=== PATIENT | female | born 1945 | race Caucasian/White ===

== ENCOUNTER → 2016-09-13 | Outpatient (CLI) | payer MEDICARE | END | disposition home or self-care (01) | LOC: LABPAT 11:33 | PROVIDERS: ATTEND Orthopaedic Surgery | DX: Z01.812 Encounter for preprocedural laboratory examination (principal); M16.11 Unilateral primary osteoarthritis, right hip | CPT/HCPCS: 86850; 86900; 86901; 87070 ==

== ENCOUNTER 2016-09-20 10:07 | Inpatient (IN) | payer MEDICARE ==
[2016-09-14 11:24] VITALS: BMI 27.0
--- NOTE | 2016-09-19 11:52 | HP ---
DATE OF ADMISSION: Jennifer Jeffrey is a 70-year-old patient seen with symptomatic right hip osteoarthritis. After having treatment options discussed, she elected to proceed with right total hip arthroplasty. Consent was obtained. Medical clearance by Dr. Lin. PAST MEDICAL HISTORY: Asthma, hypertension and gastroesophageal reflux disease. Hyperlipidemia. PAST SURGICAL HISTORY: Tonsillectomy, tubal ligation, bladder suspension surgery, cholecystectomy, breast biopsy, cataract surgery. Daily medications: 1. Aspirin. 2. Atorvastatin. 3. Benicar. 4. Omeprazole. 5. Vitamins. ALLERGIES: PENICILLIN, CIPROFLOXACIN, LATEX. SOCIAL HISTORY: Patient denies tobacco use. Physical evaluation of the right hip: There is a very limited range of motion with severe pain, diffuse tenderness about the hip girdle, weakness about the hip girdle. Hip impingement sign is positive. Straight-leg raise is negative. Distal neurovascular exam is intact. Radiographs of the right hip reveal severe osteoarthritic changes. IMPRESSION: Right hip osteoarthritis. PLAN: Direct anterior right total hip arthroplasty.
[~2016-09-20 10:07] MED LIST: ACETAMINOPHEN TAB 500 MG TAB PO ONE; DEXAMETHASONE SOD PHOSPHATE 10 MG/ML 1 ML VIAL IV ONE; HYDROmorphone 1 MG/ML 1 ML SYRINGE IVP PRN; LACTATED RINGERS 1,000 ML IV SCH; MELOXICAM 7.5 MG TAB PO ONE; ONDANSETRON 4 MG/2 ML VIAL IVP ONE; TRANEXAMIC ACID 1,000 MG in SODIUM CHLORIDE 0.9% 100 ML IVPB ONE; ceFAZolin 2 GM in SODIUM CHLORIDE 0.9% 100 ML IVPB ONE
[2016-09-20] MEDS ORDERED: LIDOCAINE 1% 20 ML VIAL (10MG/ML) FOR IV START INTRADERMA ONE (11:25)
[2016-09-20] MEDS ORDERED: ROPIVACAINE 246.25 MG, EPINEPHrine 0.5 MG, KETOROLAC 30 MG, cloNIDine HCL/PF 80 MCG, WA... MISCELLANE ONE ×5 (13:38)
[2016-09-20] MEDS ORDERED: SODIUM CHLORIDE 0.9% 100 ML BAG ONE (14:14)
[2016-09-20] MEDS ORDERED: PROPOFOL 10 MG/ML 20 ML VIAL IV ONE ×2 (14:14)
[2016-09-20] MEDS ORDERED: MIDAZOLAM 2 MG/2 ML VIAL ONE (14:14)
[2016-09-20] MEDS ORDERED: fentaNYL (PF) 50 MCG/ML 2 ML AMP ONE (14:14)
[2016-09-20] MEDS ORDERED: CLINDAMYCIN 1,800 MG in SODIUM CHLORIDE 0.9% IRRIGATIO 3,000 ML IRRIGATION ONE (14:54)
[2016-09-20] MEDS ORDERED: LACTATED RINGERS 1,000 ML IV ONE ×2 (15:30→16:46)
[2016-09-20] MEDS ORDERED: HYDROmorphone 1 MG/ML 1 ML SYRINGE IVP PRN ×3 (16:53)
[2016-09-20] MEDS ORDERED: HYDROcodone/APAP 7.5-325MG 1 EACH TAB PO PRN (16:53)
[2016-09-20] MEDS ORDERED: NALOXONE 0.4 MG/ML 1 ML VIAL IV PRN (16:53)
[2016-09-20] MEDS ORDERED: hydrOXYzine PAMOATE 25 MG CAP PO PRN (16:53)
--- NOTE | 2016-09-20 16:53 | P.OP ---
Date of Procedure: 09/20/16 Preoperative Diagnosis: Right hip osteoarthritis Postoperative Diagnosis: Right hip osteoarthritis Procedure(s) Performed: Direct anterior right total hip arthroplasty Implants: 1. Depuy Corail cementless femoral stem standard no collar size 12 2. Depuy pinnacle acetabular shell 54 mm 3. Depuy pinnacle polyethylene acetabular liner 36 mm ID - 54 mm OD 4. Depuy metallic femoral head 36 mm -2 5. 3-Depuy pinnacle cancellus bone screws Anesthesia: local, spinal Surgeon: Sarthak Sampson Flow Manager #1: Johny Antonio Estimated Blood Loss (ml): 400 Pathology: none sent Condition: stable Disposition: PACU Indications for Procedure: 68-year-old patient seen with symptomatic right hip osteoarthritis. After treatment options were discussed, he elected to proceed with right total hip arthroplasty. Operative Findings: See description of procedure Description of Procedure: The patient was taken to the operative suite. Patient underwent a spinal anesthetic by the department of anesthesia. Patient was then transferred to the Peridot table. Patient was given preoperative IV antibiotics and TXA. Both lower extremities were placed in standard leg spars. The hip was then prepped and draped in the normal sterile orthopedic fashion. A standard anterior incision was made beginning 3 cm lateral and 1 cm distal to the ASIS extending 10 cm. Dissection was then carried down through the subcutaneous soft tissues down to the fascia overlying the tensor fascia rohit. An incision was now made through the fascia. Careful dissection was taken down exposing the tensor fascia rohit muscle. A Cobra retractor was now placed along the medial femoral neck and a second one along the lateral femoral neck. The venous circumflex vessels were now identified, cauterized and clipped. We identified the anterior hip capsule. An incision was made through the hip capsule along the lateral border. Tag sutures were then placed along the anterior capsule and lateral capsule. We then performed a capsulotomy. Retractors were now placed around the femoral neck itself. A Cobra retractor was now placed along the anterior acetabulum. Good exposure was now noted of the femoral head/neck complex. Residual labrum was debrided out. We placed the extremity into 3 turns of fine traction. We were then able to introduce a skid in between the femoral head and acetabulum. A placed a awl into the femoral head. We took 2 turns of traction off the extremity. Rotation was now released. The femoral head was then dislocated without difficulty. Additional releasing was performed of the capsule. The head was then reduced. All traction was released. A femoral neck cut was now made with a sagittal saw. It was completed with an osteotome at the lateral neck area. The femoral head was now removed without difficulty. There was severe osteoarthritis of the femoral head and acetabulum. There was a very large lateral acetabular osteophyte that was removed with a osteotome. The extremity was now rotated to 60 of external rotation. It was locked in position. Residual labrum was now debrided out. Serial reaming was performed of the acetabulum. Once we reached the appropriate size and a trial was position and fit nicely. The appropriate size was now chosen opened and made available. The wound was irrigated with pulse lavage mechanical irrigation. It was introduced into the acetabulum without difficulty. The C-arm/fluoroscopy was now brought into the operative field. We made sure we had a true AP pelvic view. We now under direct C-arm/ fluoroscopy introduced into the acetabular component with appropriate version and inclination. It was well seated and stable. The C-arm was pulled back. An appropriate liner was introduced and clicked into position. It was felt to be stable. At this point retractors were removed. The extremity was now placed into 125 external rotation with no traction. The leg was now dropped to the ground and adducted. Appropriate retractors were now positioned along the proximal femur. We also placed our femoral look into position. Additional capsular releasing was performed to gain access to the proximal femur. We now used a box osteotome. A canal finder was now utilized. Serial broaching was now performed until we reached the appropriate size with good overall rotational stability. Appropriate calcar planing was performed. A trial head/ neck was placed into position. The hip was now reduced. The C-arm/fluoroscopy was brought back into the operative field. A spot film was obtained of the nonoperative hip. A spot film was obtained of the trial components. Overlays were performed, we noted good overall alignment and positioning for determining leg length. The C-arm/fluoroscopy was pulled back. Retractors were repositioned and the hip was dislocated. The leg was again taken down to the ground and adducted. Appropriate retractors were repositioned as well as the femoral hook. All trial components were removed. The femoral implant was opened along with the femoral head. The wound was irrigated with pulse lavage mechanical irrigation. The femoral implant was introduced with good purchase and fixation noted. The femoral head was introduced with good positioning and fixation noted. Retractors were now removed. The hip was now reduced. There appeared be good positioning of the hip. The C-arm was brought into the operative field confirming adequate alignment of the components. Spot films were obtained documenting that. A second gram of TXA was given. Bipolar cautery had been utilized intermittently through the procedure for hemostasis. The wound was irrigated copiously with pulse lavage mechanical irrigation. The superficial soft tissues were infiltrated local analgesic. The fascia was repaired with Vicryl suture. The subcutaneous soft tissues were repaired in layers with Vicryl suture. The skin was approximated with pernio/Dermabond. Sterile dressings were applied. Patient was then awakened, transferred to a bed and taken to recovery in stable condition. Balwinder MORRIS assisted with the procedure.
--- NOTE | 2016-09-20 17:25 | FL ---
Fluoroscopy HISTORY: Pain 41 seconds fluoroscopy time supplied to the referring clinician. 1 intraoperative C-arm images docum ent the procedure. See dictated report from orthopedic surgery.
--- NOTE | 2016-09-20 17:26 | XR ---
Limited right hip HISTORY: Right hip arthroplasty Intraoperative C-arm image documents the procedure
[2016-09-20] MEDS: LACTATED RINGERS 1,000 ML IV SCH (20:21)
[2016-09-20] MEDS: SENNOSIDES-DOCUSATE SODIUM 1 EACH TAB PO SCH (20:21)
[2016-09-20] MEDS: traMADol 50 MG TAB PO SCH ×2 (20:23→23:48)
[2016-09-20] MEDS ORDERED: LACTATED RINGERS 1,000 ML IV SCH (22:00)
[2016-09-20] MEDS ORDERED: SODIUM CHLORIDE 0.9% 500 ML IV ONE (22:07)
[2016-09-20] MEDS: ceFAZolin 2 GM in SODIUM CHLORIDE 0.9% 100 ML IVPB SCH (23:49)
[2016-09-21] MEDS: LACTATED RINGERS 1,000 ML IV SCH ×3 (04:15→23:17)
[2016-09-21 06:42] LABS: Basophils % (A) 0 %; CH 31.7; CHCM 32.4; Eosinophils % (A) 0 %; HCT 22.3 % (34.0-46.0); HDW 2.44; HGB 7.3 gm/dL (11.4-16.0); Luc # (Auto) 0.13; Luc % (Auto) 1; Lymphocytes # (A) 1.6 k/uL (1.0-4.8); Lymphocytes % (A) 12 %; MCH 32.2 pg (25.0-35.0); MCHC 32.8 g/dL (31.0-37.0); MCV 98.2 fL (80.0-100.0); Mean Platelet Volume 8.9; Monocytes # (A) 0.7 k/uL (0-1.0); Monocytes % (A) 5 %; Neutrophils # (A) 10.5 k/uL (1.3-7.7); Neutrophils % (A) 81 %; RBC 2.27 m/uL (3.80-5.40); RDW 13.2 % (11.5-15.5); WBC 12.9 k/uL (3.8-10.6); WBC (Perox) 13.33
[2016-09-21] MEDS: ceFAZolin 2 GM in SODIUM CHLORIDE 0.9% 100 ML IVPB SCH (07:16)
[2016-09-21] MEDS: MELOXICAM 7.5 MG TAB PO SCH (08:31)
[2016-09-21] MEDS: ENOXAPARIN 40 MG/0.4 ML SYRINGE SQ SCH (08:31)
[2016-09-21] MEDS: MULTIVITAMINS, THERA 1 EACH TAB PO SCH (08:32)
[2016-09-21] MEDS: FAMOTIDINE 20 MG TAB PO SCH (08:32)
[2016-09-21] MEDS: traMADol 50 MG TAB PO SCH ×5 (08:36→23:22)
[2016-09-21] MEDS ORDERED: DOCUSATE 100 MG CAP PO SCH (10:45)
[2016-09-21] MEDS ORDERED: OLMESARTAN MEDOXOMIL 10 MG PO SCH (10:45)
--- NOTE | 2016-09-21 11:44 | CONS ---
DATE OF CONSULTATION: 09/21/2016 REASON FOR CONSULTATION: Medical management requested by Dr. Sampson. CONSULTATION: This is a pleasant 70-year-old patient of Dr. Lin. Chronic stable medical conditions include asthma GERD, hyperlipidemia, hypertension, varicose veins. Patient has undergone a right total hip arthroplasty. Postprocedure, patient is sitting up in a chair. Pain is controlled. No nausea vomiting. Patient had some dizziness this morning. Patient normally runs a blood pressure about 100 to 120 systolic. Did tolerate her breakfast. No chest pain. REVIEW OF SYSTEMS: CONSTITUTIONAL: Tired. HEENT: As above. RESPIRATORY: Occasional wheezing. CARDIOVASCULAR: None. GASTROINTESTINAL: Heartburn. GENITOURINARY: None. MUSCULOSKELETAL: Some pain in the joints. DERMATOLOGICAL: None. HEMATOLOGICAL: None. LYMPHATIC: None. PSYCHIATRY: None. NEUROLOGICAL: No focal weakness. Past medical history of asthma, GERD, hyperlipidemia, hypertension, varicose vein, urinary incontinence. PAST SURGICAL HISTORY: Bladder surgery, tonsillectomy, tubal ligation, breast biopsy x2, bronchoscopy, bilateral cataracts. SOCIAL HISTORY: No smoking. No alcohol. Lives with her . Family history of Alzheimer's, rheumatic fever. HOME MEDICATIONS: 1. Tumeric 500 mg p.o. daily. 2. Omeprazole 20 mg p.o. daily. 3. Benicar 10 mg p.o. daily. 4. Multivitamin 1 tablet p.o. daily. 5. Hailey 5000 mg p.o. daily. 6. Colace 100 mg p.o. daily. 7. Vitamin D3 one tablet p.o. daily. 8. Qvar 80 mcg 1 puff inhalation b.i.d. 9. Z-Bec 1 tablet p.o. daily. 10. Lipitor 10 mg p.o. q.h.s. 11. Aspirin 81 mg daily. Allergies to CIPRO, LATEX, PENICILLIN. ON EXAMINATION: VITAL SIGNS: Temperature 97.6, pulse 76, respirations 16, blood pressure 87/47, pulse ox 96% on room air. GENERAL APPEARANCE: Average built, sitting up, comfortable. EYES: Pupils equal. Conjunctivae normal. HEENT: External appearance of nose and ears normal. Oral cavity normal. NECK: JVD not raised. Mass not palpable. RESPIRATORY: Effort normal. LUNGS: Slightly decreased breath sounds. CARDIOVASCULAR: First and second sounds normal. No edema. ABDOMEN: Soft, nontender. Liver and spleen not palpable. LYMPHATIC: No lymph nodes palpable in the neck or axillae. PSYCHIATRY: Alert and oriented x3. Mood and affect normal. NEUROLOGICAL: Pupils equal. Cranial nerves grossly intact. Power and sensation grossly intact. INVESTIGATIONS: White count 12.9, hemoglobin 7.3, platelets ( ). ASSESSMENT: 1. Right total hip arthroplasty. 2. Mild persistent asthma. 3. Gastroesophageal reflux disease. 4. Hyperlipidemia. 5. Essential hypertension, history of. 6. Postoperative hypotension from blood loss, symptomatic. Patient is dizzy. 7. Varicose veins lower extremity on the right leg. PLAN: Patient has got Lovenox for DVT prophylax. Pain control is in place. Getting IV fluids. Will DC patient's Benicar. Other home medications will be resumed. Care was discussed with the patient. Questions were answered. Thank you, Dr. Sampson.
[2016-09-21] MEDS: HYDROcodone/APAP 7.5-325MG 1 EACH TAB PO PRN (12:57)
[2016-09-21] MEDS: PANTOPRAZOLE 40 MG TABLET PO SCH (14:07)
--- NOTE | 2016-09-21 16:37 | P.PN ---
Subjective Principal diagnosis: Status post right total hip arthroplasty Patient is seen today resting in her hospital bed, she appears comfortable. She 's ambulated with therapy are ready. Her urinary cath was discontinued. She denies any headaches, chest pain, shortness of breath. She does feel a little bit lightheaded today especially with ambulation. Objective - Vital Signs Vital signs: Vital Signs Temp 98.3 F 09/21/16 15:32 Pulse 89 09/21/16 15:32 Resp 16 09/21/16 15:32 BP 109/95 09/21/16 15:32 Pulse Ox 95 09/21/16 15:32 Intake & Output 09/20/16 09/21/16 09/21/16 18:59 06:59 18:59 Intake Total 2901 1320 1510 Output Total 550 300 100 Balance 2351 1020 1410 Weight 74.843 kg Intake: IV 2901 1320 1150 Lactated Ringers 1,000 ml 720 1050 @ 80 mls/hr IV .[id number] [facility], [facility] Rx#:[id number] Sodium Chloride 0.9% 500 500 ml @ 999 mls/hr IV .Q31M ONE Rx#:[id number] ceFAZolin 2 gm In Sodium 100 100 Chloride 0.9% 100 ml @ 100 mls/hr IVPB Q8HR [facility] Rx#:[id number] Oral 360 Blood Product 0 Rc As-3 Unit 0 [id number] Output: Urine 150 300 100 Uretheral ([place]) 300 Estimated Blood Loss 400 Other: Voiding Method Indwelling Catheter # Voids 1 - Exam Right lower extremity: Incision is clean, dry and intact. There is minimal ecchymosis on the medial and lateral aspects of the incision. Calf is soft, no tenderness with palpation. Plantar flexion, dorsiflexion, EHL, FHL are intact. Cap refills less than 3 seconds, sensory exam to light touch throughout the extremity is intact. - Labs CBC & Chem 7: 09/21/16 06:28 Labs: Abnormal Lab Results - Last 24 Hours (Table) 09/21/16 09/21/16 Range/Units 06:28 11:41 WBC 12.9 H (3.8-10.6) k/uL RBC 2.27 L (3.80-5.40) m/uL Hgb 7.3 L (11.4-16.0) gm/dL Hct 22.3 L (34.0-46.0) % Plt Count 142 L (150-450) k/uL Neutrophils # 10.5 H (1.3-7.7) k/uL Crossmatch See Detail Assessment and Plan Plan: Assessment: 1. Postop day #1 status post right total hip arthroplasty Plan: 1. Pain control, continue supportive oral medication 2. Patient did receive 1 unit of blood today due to low hemoglobin, this has improved her blood pressure 3. Daily dressing changes/ice the hip region 4. Encourage incentive spirometer 5. GI and DVT prophylaxis, continue Lovenox 6. Medical recommendations 7. Discharge planning: Patient will possibly be discharged home tomorrow Time with Patient: Less than 30
--- NOTE | 2016-09-21 16:37 | P.DS ---
Providers Date of admission: 09/20/16 10:45 Expected date of discharge: 09/23/16 Attending physician: Sarthak Sampson Consults: 09/20/16 16:53 Consult Physician Routine Consulting Provider: Daryn Moura Consult Reason/Comments: Medical management Do you want consulting provider notified?: Yes Primary care physician: Ovidio Lin Hospital Course: Date of admission: 09/20/2016 Date of discharge: 09/23/2016 Admission diagnosis: Status post right total hip arthroplasty Discharge diagnosis: Same Attending physician: Dr. Sampson Surgical procedures: Right total hip arthroplasty Brief history: Patient is a 70-year-old female with a history of progressive primary right hip osteoarthritis. At this point patient has failed conservative treatment measures and has opted to proceed with a elective right total hip arthroplasty. Hospital course: Details of patient's surgery can be found in operative report. Patient tolerated the procedure well and was subsequently transported to orthopedic floor. Patient's orthopeidc and medical care was provided daily. Patient had daily laboratory tests performed for evaluation of overall blood counts. Patient had daily physical therapy to include strengthening range of motion as well as education with walker ambulation. Patient was treated with Lovenox for their postoperative DVT prophylaxis during their inpatient stay. Patient was noted to have a relatively uneventful postoperative course. Patient reported satisfactory pain control with oral pain medications by postoperative day 0. Patient showed satisfactory progress with physical therapy. Patient moved steadily through the program and had no difficulty meeting the goals by postoperative day 3. Given patient's otherwise satisfactory course and having met physical therapy goals, plan is to discharge patient home on postoperative day 3. Discharge condition/disposition: Patient will be discharged home in stable condition. Discharge medications: Instructions are given on resumption of patient's normal daily medications per primary care recommendation, in addition patient will be prescribed Hewitt 7.5 mg/325 mg, tramadol 50 mg, Colace 100 mg, aspirin 325 mg. Discharge instructions: 1. Wound care and infection precautions, keep incision dry and covered while showering, no lotions, creams, moisturizers. No soaking, tubs, pools, hottubs. Do not scrub over the incision. 2. Weight-bear as tolerated with walker / cane until follow-up. 3. Ice and elevate when necessary. Do not exceed 20 minutes per hour with ice pack. 4. Utilize compression sleeve until seen at first follow up appointment. 5. Visiting nursing care. 6. Home physical therapy. 7. Pain meds and anticoagulants per prescription. 8. Pain medication has potential to cause constipation. Increase oral fluid and fiber intake. Contact primary care provider if you have not had a bowel movement within 48 hours after discharge 9. No anti-inflammatory medication until discussed at first post operative visit, this including Motrin, Aleve, Mobic, Diclofenac. 10. Follow up in office at 2 weeks postop with Balwinder Antonio PA-C 11. Follow up with your primary care doctor 7-10 days after discharge. 12. Contact [facility] with any questions, . Procedures: Right total hip arthroplasty Patient Condition at Discharge: Good Plan - Discharge Summary New Discharge Prescriptions: Aspirin 325 mg PO BID #60 tab Docusate [Colace] 100 mg PO DAILY #20 capsule HYDROcodone/APAP 7.5-325MG [Hewitt 7.5] 1 each PO Q6HR PRN #40 tab PRN Reason: Pain traMADol HCl [Ultram] 50 mg PO Q6H PRN #30 tab PRN Reason: Pain Discharge Medication List Acetaminophen Tab [Tylenol Tab] 500 mg PO HS PRN 09/14/16 [History] Atorvastatin [Lipitor] 10 mg PO HS 09/14/16 [History] Beclomethasone Dipropionate [Qvar 80 mcg] 1 puff INHALATION RT-BID 09/14/16 [ History] Calcium Carb/Vitamin D3/Vit K1 [Viactiv Soft Chew Tablet] 1 tab PO DAILY [History] Docusate Sodium [Dok] 100 mg PO DAILY 09/14/16 [History] Hailey 500 mg PO DAILY 09/14/16 [History] Multivitamins, Thera [Multivitamin] 1 tab PO DAILY 09/14/16 [History] Omeprazole 20 mg PO QAM 09/14/16 [History] Turmeric Root Extract [Turmeric] 500 mg PO DAILY 09/14/16 [History] B Complex-Vit C-Vit E-Zinc [Z-Bec] 1 tab PO DAILY 09/20/16 [History] Docusate [Colace] 100 mg PO DAILY #20 capsule 09/22/16 [Rx] HYDROcodone/APAP 7.5-325MG [Hewitt 7.5] 1 each PO Q6HR PRN #40 tab 09/22/16 [Rx] traMADol HCl [Ultram] 50 mg PO Q6H PRN #30 tab 09/22/16 [Rx] Aspirin 325 mg PO BID #60 tab 09/23/16 [Rx] Follow up Appointment(s)/Referral(s): [facility], [NON-STAFF] - 1 Week Johny Antonio PAC [PHYSICIAN ENVIRONMENTAL ECONOMIST] - 10/08/16 3:00 pm Activity/Diet/Wound Care/Special Instructions: hold benicar till f/u with pcp Orthopedic Discharge Instructions: 1. Wound care and infection precautions, keep incision dry and covered while showering, no lotions, creams, moisturizers. No soaking, pools, hot tubs. Do not scrub over incision. 2. Weight-bear as tolerated with walker / cane until follow-up. 3. Ice and elevate when necessary. Do not exceed 20 minutes per hour with ice pack. 4. Utilize compression sleeve until seen at first follow up appointment. 5. Visiting nursing care. 6. Home physical therapy. 7. Pain meds and anticoagulants per prescription. 8. Pain medication has potential to cause constipation. Increase oral fluid and fiber intake. Contact primary care provider if you have not had a bowel movement within 48 hours after discharge. 9. No anti-inflammatory medication until discussed at first post operative visit, this including Motrin, Aleve, Mobic, Diclofenac, Aspirin. 10. Follow up in office at 2 weeks postop with Balwinder Antonio PA-C 11. Follow up with your primary care doctor 7-10 days after discharge. 12. Contact [facility] with any questions, . Discharge Disposition: HOME WITH HOME HEALTH SERVICES
[2016-09-21] MEDS: ATORVASTATIN 10 MG TAB PO SCH (19:39)
[2016-09-21] MEDS: SENNOSIDES-DOCUSATE SODIUM 1 EACH TAB PO SCH (19:39)
[2016-09-21] MEDS: BUDESONIDE 1 MG/2 ML NEBU INHALATION SCH (20:31)
[2016-09-21] MEDS ORDERED: TEMAZEPAM 15 MG CAP PO PRN (22:00)
[2016-09-22] MEDS: ONDANSETRON 4 MG/2 ML VIAL IVP PRN ×2 (01:53→09:57)
[2016-09-22] MEDS: HYDROcodone/APAP 7.5-325MG 1 EACH TAB PO PRN (05:54)
[2016-09-22] MEDS: FAMOTIDINE 20 MG TAB PO SCH (08:24)
[2016-09-22] MEDS: traMADol 50 MG TAB PO SCH ×4 (08:24→23:15)
[2016-09-22] MEDS: PANTOPRAZOLE 40 MG TABLET PO SCH (08:24)
[2016-09-22] MEDS: MELOXICAM 7.5 MG TAB PO SCH (08:24)
[2016-09-22] MEDS: ENOXAPARIN 40 MG/0.4 ML SYRINGE SQ SCH (08:24)
--- NOTE | 2016-09-22 11:14 | P.PN ---
Subjective Principal diagnosis: Status post right total hip arthroplasty Patient is seen today resting in her hospital bed, she appears comfortable. She 's ambulated with therapy are ready. She denies any headaches, chest pain, shortness of breath. Objective - Vital Signs Vital signs: Vital Signs Temp 98.6 F 09/22/16 07:55 Pulse 87 09/22/16 08:00 Resp 16 09/22/16 08:00 BP 105/53 09/22/16 07:55 Pulse Ox 95 09/22/16 07:55 Intake & Output 09/21/16 09/22/16 09/22/16 18:59 06:59 18:59 Intake Total 2000 960 180 Output Total 525 600 900 Balance 1475 360 -720 Weight 74.843 kg Intake: IV 1150 Lactated Ringers 1,000 ml 1050 @ 80 mls/hr IV .[id number] [facility] Rx#:[id number] ceFAZolin 2 gm In Sodium 100 Chloride 0.9% 100 ml @ 100 mls/hr IVPB Q8HR [facility] Rx#:[id number] Oral 540 960 180 Blood Product 310 Rc As-3 Unit 310 [id number] Output: Urine 525 600 900 Uretheral ([place]) 425 600 800 Other: Voiding Method Indwelling Catheter Toilet # Voids 1 - Exam Right lower extremity: Incision is clean, dry and intact. There is minimal ecchymosis on the medial and lateral aspects of the incision. Calf is soft, no tenderness with palpation. Plantar flexion, dorsiflexion, EHL, FHL are intact. Cap refills less than 3 seconds, sensory exam to light touch throughout the extremity is intact. - Labs CBC & Chem 7: 09/21/16 06:28 Labs: Abnormal Lab Results - Last 24 Hours (Table) 09/21/16 Range/Units 11:41 Crossmatch See Detail Assessment and Plan Plan: Assessment: 1. Postop day #2 status post right total hip arthroplasty Plan: 1. Pain control, continue supportive oral medication 2. Check hemoglobin today 3. Daily dressing changes/ice the hip region 4. Encourage incentive spirometer 5. GI and DVT prophylaxis, continue Lovenox 6. Medical recommendations 7. Discharge planning: Patient may be discharged home today Time with Patient: Less than 30
[2016-09-22 11:30] LABS: Basophils % (A) 0 %; CH 31.2; CHCM 32.8; Eosinophils # (A) 0.1 k/uL (0-0.7); Eosinophils % (A) 1 %; HCT 25.8 % (34.0-46.0); HDW 3.03; HGB 8.5 gm/dL (11.4-16.0); Luc # (Auto) 0.09; Luc % (Auto) 1; Lymphocytes # (A) 1.5 k/uL (1.0-4.8); Lymphocytes % (A) 14 %; MCH 31.5 pg (25.0-35.0); MCHC 32.8 g/dL (31.0-37.0); MCV 95.9 fL (80.0-100.0); Mean Platelet Volume 9.2; Monocytes # (A) 0.7 k/uL (0-1.0); Monocytes % (A) 6 %; Neutrophils % (A) 77 %; RBC 2.69 m/uL (3.80-5.40); WBC 10.4 k/uL (3.8-10.6); WBC (Perox) 11.08
[2016-09-22] MEDS: BUDESONIDE 1 MG/2 ML NEBU INHALATION SCH ×2 (11:49→19:20)
--- NOTE | 2016-09-22 12:03 | CDI ---
In responding to this query, please exercise your independent professional judgment. The [facility] Coding Staff and Clinical Documentation Specialists appreciate your assistance in clarifying documentation, maintaining compliance with coding guidelines, accurately documenting patients condition and capturing severity of illness. The fact that a question is asked does not imply that any particular answer is desired or expected. Communication forms are a method of clarifying documentation and are not made part of the Legal Health Record. Thank you in advance for your clarification. Last Revision, May 2015 Fadi Martini [address] [place] [address] Documentation Clarification Form Date: 09/22/2016 11:53:00 AM From: Sidra Cabrera CCS, CCDS Admit Date: 09/20/2016 10:45:00 AM Patient Name: Jennifer Jeffrey Visit Number: [id number] Discharge Date: Dr. Sarthak Sampson: A diagnosis of anemia lacks specificity to accurately reflect your patients severity of condition and clarification is needed. 70 yo female is status post a right total knee arthroplasty per orthopedic surgeon. Postoperatively, the patient is noted to have postoperative hypotension and per the orthopedic progress note, the patient received one unit of PRBCs. Patient history/risk factors: Hypertension, Varicose veins, GERD, Asthma & Hyperlipidemia. Normal BP: 100-120 systolic. Clinical Indicators: POD #1 & #2: patient had symptomatic hypotension with dizziness & BP 83/50, 80/42, 87/45. Hemoglobin: 7.3, 8.5 Hematocrit: 22.3, 25.8 Treatment: One unit PRBCs, IV Lactated ringers, IV fluid bolus, monitoring H&H. In order to capture the severity of condition, please clarify the type of anemia and etiology if known: Acute blood loss anemia Acute on chronic blood loss anemia Chronic blood loss anemia Iron deficiency anemia Hemolytic anemia Drug induced anemia Nutritional anemia Unable to determine Other, please specify Please document in your progress notes and discharge summary in order to capture severity of illness and risk of mortality. Include clinical findings that support your diagnosis. FYI: Press F11 to launch patient chart. Place X here if this finding has no clinical significance, is not applicable or if you are not able to provide any additional documentation. Thank You. KODI
[2016-09-22] MEDS: MULTIVITAMINS, THERA 1 EACH TAB PO SCH (12:59)
[2016-09-22] MEDS: LACTATED RINGERS 1,000 ML IV SCH (18:27)
[2016-09-22] MEDS: ATORVASTATIN 10 MG TAB PO SCH (20:06)
[2016-09-22] MEDS: SENNOSIDES-DOCUSATE SODIUM 1 EACH TAB PO SCH (20:06)
--- NOTE | 2016-09-23 07:03 | PN ---
DATE OF SERVICE: 09/22/2016 PRESENTING COMPLAINT: Right hip arthroplasty. INTERVAL HISTORY: The patient is status post right hip arthroplasty. Doing well, sitting up, comfortable. No chest pain or short of breath. Did well with therapy. Dizziness was better. Review of systems done for constitutional, cardiovascular, GI, pulmonary; relevant findings as above. Current medications are reviewed. On examination, temperature 98.6, pulse 87, respiration 16, blood pressure 105/53, pulse ox 95% on room air. GENERAL APPEARANCE: Sitting up, comfortable. EYES: Pupils equal. Conjunctivae normal. NECK: JVD not raised. Mass not palpable. RESPIRATORY: Effort normal. Lungs are clear. CARDIOVASCULAR: First and second sounds normal. No edema. ABDOMEN: Soft, nontender. Liver and spleen not palpable. PSYCHIATRY: Alert and oriented x3. Mood and affect normal. INVESTIGATIONS: Hemoglobin 8.5. ASSESSMENT: 1. Right total hip arthroplasty. 2. Mild persistent asthma. 3. Gastroesophageal reflux disease. 4. Hyperlipidemia. 5. Essential hypertension, history of. 6. Postoperative hypotension from blood loss, symptomatic, improving. 7. Varicose veins of the right lower extremity. PLAN: Continue current medication and treatment plan. Care was discussed with the patient. Blood pressure was doing better, but hold off antihypertensive.
[2016-09-23] MEDS: LACTATED RINGERS 1,000 ML IV SCH (07:20)
[2016-09-23 07:45] VITALS: BP 117/51; PULSE 97; RESP 18; TEMP 97.1
[2016-09-23] MEDS: ENOXAPARIN 40 MG/0.4 ML SYRINGE SQ SCH (07:53)
[2016-09-23] MEDS: PANTOPRAZOLE 40 MG TABLET PO SCH (07:54)
[2016-09-23] MEDS: MELOXICAM 7.5 MG TAB PO SCH (07:54)
[2016-09-23] MEDS: traMADol 50 MG TAB PO SCH ×2 (07:54→12:04)
[2016-09-23] MEDS: FAMOTIDINE 20 MG TAB PO SCH (07:54)
[2016-09-23] MEDS: BUDESONIDE 1 MG/2 ML NEBU INHALATION SCH (08:43)
--- NOTE | 2016-09-23 11:45 | CDI ---
In responding to this query, please exercise your independent professional judgment. The [facility] Coding Staff and Clinical Documentation Specialists appreciate your assistance in clarifying documentation, maintaining compliance with coding guidelines, accurately documenting patients condition and capturing severity of illness. The fact that a question is asked does not imply that any particular answer is desired or expected. Communication forms are a method of clarifying documentation and are not made part of the Legal Health Record. Thank you in advance for your clarification. Last Revision, May 2015 Fadi Martini [address] [place] [address] Documentation Clarification Form Date: 09/23/2016 11:45:00 AM From: Sidra Cabrera CCS, CCDS Admit Date: 09/20/2016 10:45:00 AM Patient Name: Jennifer Jeffrey Visit Number: [id number] Discharge Date: Dr. Daryn Moura: A diagnosis of anemia lacks specificity to accurately reflect your patients severity of condition and clarification is needed. 70 yo female is status post a right total knee arthroplasty per orthopedic surgeon. Postoperatively, the patient is noted to have postoperative hypotension and per the orthopedic progress note, the patient received one unit of PRBCs. Patient history/risk factors: Hypertension, Varicose veins, GERD, Asthma & Hyperlipidemia. Normal BP: 100-120 systolic. Clinical Indicators: POD #1 & #2: patient had symptomatic hypotension with dizziness & BP 83/50, 80/42, 87/45. Hemoglobin: 7.3, 8.5 Hematocrit: 22.3, 25.8 Treatment: One unit PRBCs, IV Lactated ringers, IV fluid bolus, monitoring H&H. In order to capture the severity of condition, please clarify the type of anemia and etiology if known: Acute blood loss anemia Acute on chronic blood loss anemia Chronic blood loss anemia Iron deficiency anemia Hemolytic anemia Drug induced anemia Nutritional anemia Unable to determine Other, please specify Please document in your progress notes and discharge summary in order to capture severity of illness and risk of mortality. Include clinical findings that support your diagnosis. FYI: Press F11 to launch patient chart. ___+__ Place X here if this finding has no clinical significance, is not applicable or if you are not able to provide any additional documentation. Thank You. KODI
--- NOTE | 2016-09-23 11:48 | P.PN ---
Subjective Principal diagnosis: Status post right total hip arthroplasty Patient is seen today resting in her hospital bed, she appears comfortable. She 's ambulated with therapy are ready. She denies any headaches, chest pain, shortness of breath. Objective - Vital Signs Vital signs: Vital Signs Temp 97.1 F L 09/23/16 07:44 Pulse 97 09/23/16 08:00 Resp 18 09/23/16 08:00 BP 117/51 09/23/16 07:44 Pulse Ox 96 09/23/16 07:44 Intake & Output 09/22/16 09/23/16 09/23/16 18:59 06:59 18:59 Intake Total 770 240 Output Total 1000 Balance -230 240 Weight 74.843 kg Intake: Oral 770 240 Output: Urine 1000 Uretheral ([place]) 800 Other: Voiding Method Toilet Toilet Toilet # Voids 1 1 - Exam Right lower extremity: Incision is clean, dry and intact. There is minimal ecchymosis on the medial and lateral aspects of the incision. Calf is soft, no tenderness with palpation. Plantar flexion, dorsiflexion, EHL, FHL are intact. Cap refills less than 3 seconds, sensory exam to light touch throughout the extremity is intact. - Labs CBC & Chem 7: 09/22/16 11:10 Assessment and Plan Plan: Assessment: 1. Postop day #3 status post right total hip arthroplasty Plan: 1. Pain control, continue supportive oral medication 2. Check hemoglobin today 3. Daily dressing changes/ice the hip region 4. Encourage incentive spirometer 5. GI and DVT prophylaxis, continue Lovenox 6. Medical recommendations 7. Discharge planning: Patient will be discharged home today Time with Patient: Less than 30
[2016-09-23] MEDS: MULTIVITAMINS, THERA 1 EACH TAB PO SCH (12:04)
[2016-09-23 13:18] LABS: Basophils # (A) 0.1 k/uL (0-0.2); Basophils % (A) 1 %; CH 31.5; CHCM 33.2; Eosinophils # (A) 0.2 k/uL (0-0.7); Eosinophils % (A) 2 %; HCT 24.4 % (34.0-46.0); HDW 2.77; HGB 8.2 gm/dL (11.4-16.0); Luc % (Auto) 1; Lymphocytes # (A) 1.7 k/uL (1.0-4.8); Lymphocytes % (A) 18 %; MCH 31.9 pg (25.0-35.0); MCHC 33.4 g/dL (31.0-37.0); MCV 95.5 fL (80.0-100.0); Mean Platelet Volume 10.5; Monocytes # (A) 0.4 k/uL (0-1.0); Monocytes % (A) 5 %; Neutrophils # (A) 6.8 k/uL (1.3-7.7); Neutrophils % (A) 74 %; RBC 2.55 m/uL (3.80-5.40); RDW 14.8 % (11.5-15.5); WBC 9.3 k/uL (3.8-10.6); WBC (Perox) 9.86
--- NOTE | 2016-09-24 08:02 | PN ---
DATE OF SERVICE: 09/23/2016 PRESENTING COMPLAINT: Right hip arthroplasty. INTERVAL HISTORY: This patient seen by me earlier today is status post right hip surgery, doing well. No chest pain, short of breath. Tolerating a diet. Did work with therapy. Review of systems done for constitutional, cardiovascular, GI, pulmonary; relevant findings as above. Current medications are reviewed. On examination, temperature 97.1, pulse 97, respirations 18, blood pressure 117/51, pulse ox 96% on room air. GENERAL APPEARANCE: Sitting up, comfortable. EYES: Pupils equal, conjunctivae normal. NECK: JVD not raised. Mass not palpable. RESPIRATORY: Effort normal. Lungs are clear. CARDIOVASCULAR: First and second sounds normal. No edema. ABDOMEN: Soft, nontender. Liver and spleen not palpable. PSYCHIATRY: Alert and oriented x3. Mood and affect normal. INVESTIGATIONS: Hemoglobin 8.2. ASSESSMENT: 1. Right total hip arthroplasty. 2. Mild persistent asthma. 3. Gastroesophageal reflux disease. 4. Hyperlipidemia. 5. Essential hypertension, history of. 6. Postop hypotension from blood loss. 7. Varicose veins in the right lower extremity. 8. Chronic anemia, normocytic, cause unknown. PLAN: Patient is doing well. Continue current medication and treatment plan. Antihypertensive to be held and follow with a family doctor.
== END 2016-09-23 14:04 | disposition home health service (06) | DRG 470 ==
LOC: 2ORMAIN 10:45 → 3SUR 17:05
PROVIDERS: ADMIT Orthopaedic Surgery; ATTEND Orthopaedic Surgery
PROC: 0SR902A Replacement of Right Hip Joint with Metal on Polyethylene Synthetic Substitute, Uncemented, Open Approach (ICD-10-PCS; principal; 2016-09-20 13:00)
PROC: 30233N1 Transfusion of Nonautologous Red Blood Cells into Peripheral Vein, Percutaneous Approach (ICD-10-PCS; 2016-09-21)
DX: M16.11 Unilateral primary osteoarthritis, right hip (principal); I10 Essential (primary) hypertension; M25.751 Osteophyte, right hip; D64.9 Anemia, unspecified; M25.851 Other specified joint disorders, right hip; I95.81 Postprocedural hypotension; J45.30 Mild persistent asthma, uncomplicated; K21.9 Gastro-esophageal reflux disease without esophagitis; E78.5 Hyperlipidemia, unspecified; I83.91 Asymptomatic varicose veins of right lower extremity; R32 Unspecified urinary incontinence; R53.1 Weakness; Z90.49 Acquired absence of other specified parts of digestive tract; Z98.51 Tubal ligation status; Z88.1 Allergy status to other antibiotic agents; Z79.82 Long term (current) use of aspirin; Z82.0 Family history of epilepsy and other diseases of the nervous system; Z98.49 Cataract extraction status, unspecified eye; Z79.899 Other long term (current) drug therapy; Z88.0 Allergy status to penicillin; Z91.040 Latex allergy status
CPT/HCPCS: 73501; 85025; 86850; 86900; 86901; 86920; 88300; 94640

== ENCOUNTER → 2017-03-08 | Outpatient (CLI) | payer MEDICARE ==
--- NOTE | 2017-03-10 08:11 | MM ---
Reason for exam: screening (asymptomatic). Last mammogram was performed 1 year ago. History: Patient is postmenopausal. Benign left US cyst aspiration of the left breast, May 29, 2007. Benign US right core biopsy of the right breast, May 29, 2007. Core biopsy of the right breast, June 20, 2006. Took estrogen for 4 years 6 months beginning at age 56. Physical Findings: A clinical breast exam by your physician is recommended on an annual basis and results should be correlated with mammographic findings. MG 3D Screening Mammo W/Cad Bilateral CC and MLO view(s) were taken. Prior study comparison: March 05, 2016, bilateral MG 3d screening mammo w/cad. March 06, 2015, right breast MG work up mamm w CAD RT. February 26, 2015, bilateral MG screening mammo w CAD. February 15, 2014, bilateral MG screening mammo w CAD. The breast tissue is heterogeneously dense. This may lower the sensitivity of mammography. Previous mammotome biopsy in the right breast. No significant changes when compared with prior studies. ASSESSMENT: Negative, BI-RAD 1 RECOMMENDATION: Routine screening mammogram of both breasts in 1 year.
== END | disposition home or self-care (01) ==
LOC: RADMAMWWP 14:48
PROVIDERS: ATTEND Family Medicine
DX: Z12.31 Encounter for screening mammogram for malignant neoplasm of breast (principal)
CPT/HCPCS: 77063; G0202

== ENCOUNTER → 2017-06-03 | Outpatient (CLI) | payer MEDICARE ==
--- NOTE | 2017-06-03 16:47 | US ---
EXAMINATION TYPE: US duplex aorta DATE OF EXAM: 06/03/2017 COMPARISON: US CLINICAL HISTORY: Z13.9 Screening for unspecified condition. Screening, pt has no complaints at this time EXAM MEASUREMENTS: Abdominal Aorta: Proximal: 2.1 x 2.1 cm Mid: 1.5 x 1.4 cm Distal: 1.5 x 1.4 cm Bifurcation: PIYUSH: 1.3 x 1.0 cm GEENA: 1.0 x 1.0 cm Aorta appeared wnl IMPRESSION: 1. Screening abdominal ultrasound for abdominal aortic aneurysm is negative.
== END | disposition home or self-care (01) ==
LOC: RADUSWWP 07:50
PROVIDERS: ATTEND Family Medicine
DX: Z13.9 Encounter for screening, unspecified (principal)
CPT/HCPCS: 93979

== ENCOUNTER → 2017-06-08 | Outpatient (CLI) | payer MEDICARE ==
--- NOTE | 2017-06-08 15:14 | BD ---
EXAMINATION TYPE: MG DEXA axial skeleton. DATE OF EXAM: 06/08/2017 COMPARISON: DEXA bone scan January 10, 2012 CLINICAL HISTORY: Height: 65.5 Weight: 163 FRAX RISK QUESTIONS: Alcohol (3 or more units per day): no Family History (Parent hip fracture): no Glucocorticoids (More than 3mos): yes (Ex: prednisone, prednisolone, methylprednisolone, dexamethasone, and hydrocortisone). History of Fracture in Adulthood: toe Secondary Osteoporosis: 1. Type 1 Diabetes: no 2. Hyperthyroidism: no 3. Menopause before 45: no 4. Malnutrition: no 5. Chronic liver disease: no Rheumatoid Arthritis: no Current Tobacco Use: no RISK FACTORS HISTORY OF: Surgery to Hip(right): yes When: early 2016 Family History of Osteoporosis: yes Active: yes Diet low in dairy products/other sources of calcium: several servings a week Postmenopausal woman: yes Take estrogen and/or progesterone medications: not now How long: about 4 1/2 years Lost more than 2 inches in height since high school: no Frequent falls: no Poor Health: no Hyperparathyroidism: no, Adrenal Insufficiency: no MEDICATIONS: Prednisone or other steroids: yes How Long: about 3 years Thyroid Medications: no Osteoporosis Medications: no Additional Medications: calcium with Vitamin D , Atorvastatin(Lipitor), Q-Keshawn Inhalation Aerosol, Young icar for blood pressure Additional History: articular cartilage disorder site unspecified EXAM MEASUREMENTS: Bone mineral densitometry was performed using the [employer]. Bone mineral density as measured about the Lumbar spine is: ----- L1-L4(G/cm2): 1.258 T Score Values are as follows: ----- L2: 0.6 ----- L3: 1.4 ----- L4: 0.1 ----- L1-L4: 0.7 Bone mineral density has: Decreased -4.4% since study of: 01/10/2012 Bone mineral density about the L hip (g/cm2): 0.736 T Score values are as follows: -----L Neck: -2.2 -----L Total: -1.6 Bone mineral density has: decreased -12.8% since study of: 01/10/2012 IMPRESSION: Osteopenia (T Score between -2.5 and -1 as noted by T score values in the left hip. Bone density is d ecreased or diminished from prior. There remains slightly increased risk of fracture and the patient may be considered for treatment. Re-Screen 2-5 years. NOTE: T-SCORE=SD OF THE YOUNG ADULT MEAN.
== END | disposition home or self-care (01) ==
LOC: RADBDWWP 10:22
PROVIDERS: ATTEND Family Medicine
DX: M85.852 Other specified disorders of bone density and structure, left thigh (principal)
CPT/HCPCS: 77080

== ENCOUNTER → 2018-04-06 | Outpatient (CLI) | payer MEDICARE ==
--- NOTE | 2018-04-06 14:54 | MM ---
Reason for exam: screening (asymptomatic). Last mammogram was performed 1 year and 1 month ago. History: Patient is postmenopausal. Benign left US cyst aspiration of the left breast, May 29, 2007. Benign US right core biopsy of the right breast, May 29, 2007. Core biopsy of the right breast, June 20, 2006. Took estrogen for 4 years 6 months beginning at age 56. Physical Findings: A clinical breast exam by your physician is recommended on an annual basis and results should be correlated with mammographic findings. MG 3D Screening Mammo W/Cad Bilateral CC and MLO view(s) were taken. Prior study comparison: March 08, 2017, bilateral MG 3d screening mammo w/cad. March 05, 2016, bilateral MG 3d screening mammo w/cad. The breast tissue is heterogeneously dense. This may lower the sensitivity of mammography. There are benign appearing round calcifications bilaterally. There is no discrete abnormality. ASSESSMENT: Benign, BI-RAD 2 RECOMMENDATION: Routine screening mammogram of both breasts in 1 year.
== END | disposition home or self-care (01) ==
LOC: RADMAMWWP 10:39
PROVIDERS: ATTEND Family Medicine
DX: Z12.31 Encounter for screening mammogram for malignant neoplasm of breast (principal)
CPT/HCPCS: 77063; 77067

== ENCOUNTER → 2019-04-02 | Outpatient (CLI) | payer MEDICARE | END | disposition home or self-care (01) | LOC: LABPAT 10:14 | PROVIDERS: ATTEND Orthopaedic Surgery | DX: Z01.812 Encounter for preprocedural laboratory examination (principal); M16.12 Unilateral primary osteoarthritis, left hip | CPT/HCPCS: 87070 ==

== ENCOUNTER 2019-04-09 08:52 | Inpatient (IN) | payer MEDICARE ==
--- NOTE | 2019-04-08 13:56 | HP ---
HISTORY AND PHYSICAL Jennifer Jeffrey is a 73-year-old patient seen with symptomatic left hip osteoarthritis. After having treatment options discussed with her, she elected to proceed with direct anterior left total hip arthroplasty. Consent regarding the procedure was obtained. Medical clearance was provided by Dr. Lin. PAST MEDICAL HISTORY: Hypertension, hyperlipidemia, asthma. PAST SURGICAL HISTORY: Right total hip arthroplasty, cataract surgery, colonoscopy, breast biopsy, cholecystectomy, bladder suspension surgery, tonsillectomy. DAILY MEDICATIONS: Aspirin, atorvastatin, Benicar, isosorbide. ALLERGIES: PENICILLIN, CIPROFLOXACIN, LATEX. SOCIAL HISTORY: She denies current tobacco use. PHYSICAL EXAMINATION: Evaluation of the left hip, there is limited range of motion with pain. Positive hip impingement sign. Straight leg raise is negative. Her distal neurovascular exam is intact. RADIOGRAPHS: Radiographs of the left hip reveal severe osteoarthritic changes. IMPRESSION: 1. Left hip osteoarthritis. 2. Hypertension. 3. Hyperlipidemia. PLAN: Direct anterior left total hip arthroplasty. MMODL / IJN: [id number] /
[~2019-04-09 08:52] MED LIST changes: -ACETAMINOPHEN TAB 500 MG TAB PO ONE; -DEXAMETHASONE SOD PHOSPHATE 10 MG/ML 1 ML VIAL IV ONE; +HYDROmorphone 0.5 MG/0.5 ML SYRINGE IVP PRN; -HYDROmorphone 1 MG/ML 1 ML SYRINGE IVP PRN; -LACTATED RINGERS 1,000 ML IV SCH; +LIDOCAINE 1% 20 ML VIAL (10MG/ML) FOR IV START INTRADERMA PRN; -MELOXICAM 7.5 MG TAB PO ONE; -ONDANSETRON 4 MG/2 ML VIAL IVP ONE; +ROPIVACAINE 246.25 MG, EPINEPHrine 0.5 MG, KETOROLAC 30 MG, cloNIDine HCL/PF 80 MCG, WA... MISCELLANE ONE; -ceFAZolin 2 GM in SODIUM CHLORIDE 0.9% 100 ML IVPB ONE
[2019-04-09] MEDS: MELOXICAM 7.5 MG TAB PO ONE ×2 (09:23→13:10)
[2019-04-09] MEDS: ACETAMINOPHEN TAB 500 MG TAB PO ONE ×2 (09:23→13:10)
[2019-04-09] MEDS: LACTATED RINGERS 1,000 ML IV SCH ×3 (09:38→13:12)
[2019-04-09] MEDS: DEXAMETHASONE SOD PHOSPHATE 10 MG/ML 1 ML VIAL IV ONE ×2 (09:44→13:09)
[2019-04-09] MEDS: ONDANSETRON 4 MG/2 ML VIAL IVP ONE ×2 (09:44→13:10)
[2019-04-09] MEDS ORDERED: ePHEDrine SULFATE/0.9% NACL/PF 50 MG/5 ML SYRINGE IV ONE (10:19)
[2019-04-09] MEDS ORDERED: MIDAZOLAM 2 MG/2 ML VIAL ONE (10:19)
[2019-04-09] MEDS ORDERED: TRANEXAMIC ACID 1,000 MG/10 ML VIAL ONE (10:19)
[2019-04-09] MEDS ORDERED: SODIUM CHLORIDE 0.9% 100 ML BAG ONE (10:19)
[2019-04-09] MEDS ORDERED: PHENYLEPHRINE-0.9% NACL SYG 1 MG/10 ML SYRINGE ONE (10:19)
[2019-04-09] MEDS ORDERED: PROPOFOL 10 MG/ML 20 ML VIAL IV ONE (10:19)
[2019-04-09] MEDS ORDERED: ceFAZolin 3,000 MG in SODIUM CHLORIDE 0.9% IRRIGATIO 3,000 ML IRRIGATION ONE (10:53)
[2019-04-09] MEDS ORDERED: LACTATED RINGERS 1,000 ML IV ONE (12:00)
[2019-04-09] MEDS ORDERED: HYDROcodone/APAP 7.5-325MG 1 EACH TAB PO PRN (12:22)
[2019-04-09] MEDS ORDERED: ONDANSETRON 4 MG/2 ML VIAL IVP PRN (12:22)
[2019-04-09] MEDS ORDERED: HYDROmorphone 0.5 MG/0.5 ML SYRINGE IVP PRN ×3 (12:22)
[2019-04-09] MEDS ORDERED: NALOXONE 0.4 MG/ML 1 ML VIAL IV PRN (12:22)
--- NOTE | 2019-04-09 12:22 | P.OP ---
Date of Procedure: 04/09/19 Preoperative Diagnosis: Left hip osteoarthritis Postoperative Diagnosis: Left hip osteoarthritis Procedure(s) Performed: Direct anterior left total hip arthroplasty Implants: 1. Depuy Corail KA standard with collar press fit femoral stem 2. Depuy pinnacle 52 mm press-fit acetabular shell 3. Depuy pinnacle neutral polyethylene acetabular liner 52 mm OD 36 mm ID 4. Biolox delta ceramic femoral head 36 mm +1.5 Anesthesia: local, spinal Surgeon: Sarthak Sampson Estimated Blood Loss (ml): 150 Pathology: other (Femoral head) Condition: stable Disposition: PACU Indications for Procedure: 73-year-old patient seen with symptomatic left hip osteoarthritis. After having treatment options discussed, she elected to proceed with total hip arthroplasty. Operative Findings: see description of procedure Description of Procedure: The patient was taken to the operative suite. Patient underwent a spinal anesthetic by the department of anesthesia. Patient was then transferred to the [place] table. Patient was given preoperative IV antibiotics and TXA. Both lower extremities were placed in standard leg spars. The hip was then prepped and draped in the normal sterile orthopedic fashion. A standard anterior incision was made beginning 3 cm lateral and 1 cm distal to the ASIS extending 10 cm. Dissection was then carried down through the subcutaneous soft tissues down to the fascia overlying the tensor fascia rohit. An incision was now made through the fascia. Careful dissection was taken down exposing the tensor fascia rohit muscle. A Cobra retractor was now placed along the medial femoral neck and a second one along the lateral femoral neck. The venous circumflex vessels were now identified, cauterized and clipped. We identified the anterior hip capsule. An incision was made through the hip capsule along the lateral border. I performed a partial anterior capsulectomy. Retractors were now placed around the femoral neck itself. A femoral neck cut was now made with a sagittal saw. It was completed with an osteotome at the lateral neck area. The femoral head was now removed without difficulty. The extremity was now rotated to 45 of external rotation. It was locked in position. Residual labrum was now debrided out. Serial reaming was performed of the acetabulum while my family readiness support assistant assisted holding an anterior retractor for exposure. Once we reached the appropriate size and a trial was position and fit nicely. The appropriate size was now chosen opened and made available. It was introduced into the acetabulum without difficulty. The C-arm/fluoroscopy was now brought into the operative field. We made sure we had a true AP pelvic view. We now under direct C-arm/fluoroscopy introduced into the acetabular component with appropriate version and inclina tion. I held the cup in appropriate position well Balwinder MORRIS used a mallet to seat the acetabular component. I noted the component now to be well seated and stable. Acetabular cup introduce her was removed. The C-arm was pulled back. An appropriate liner was introduced and clicked into position. It was felt to be stable. At this point retractors were removed. The extremity was now placed into 120 external rotation with no traction. The leg was now dropped to the ground and adducted. Appropriate retractors were now positioned along the proximal femur. We also placed our femoral look into position. Additional capsular releasing was performed to gain access to the proximal femur. We now used a box osteotome. A canal finder was now utilized. Serial broaching was now performed with the assistance of my family readiness support assistant tapping the broaches down with a mallet while held the broach in appropriate rotation and position. This was done until we reached the appropriate size with good overall rotational stability. Appropriate calcar planing was performed. A trial head/neck was placed into position. The hip was now reduced. The C- arm/fluoroscopy was brought back into the operative field. A spot film was obtained of the nonoperative hip. A spot film was obtained of the trial components. Overlays were performed, we noted good overall alignment and positioning for determining leg length. The C-arm/fluoroscopy was pulled back. Retractors were repositioned and the hip was dislocated. The leg was again taken down to the ground and adducted. Appropriate retractors were repositioned as well as the femoral hook. All trial components were removed. The femoral implant was opened along with the femoral head. The femoral implant was introduced on the appropriate handle into our pre-broached area. I held the component position well my family readiness support assistant used a mallet to seat the femoral component. The femoral component was now noted to be well seated and stable.. The femoral head was introduced with good positioning and fixation noted. Retractors were now removed. The hip was now reduced. There appeared be good positioning of the hip confirmed on intraoperative fluoroscopy. Spot films were obtained to document this. A second gram of TXA was given. The deep and superficial soft tissues were infiltrated with local analgesic. Bipolar cautery had been utilized intermittently through the procedure for hemostasis. The wound was irrigated copiously with pulse lavage mechanical irrigation. The fascia was repaired with Vicryl suture. The subcutaneous soft tissues were repaired in layers with Vicryl suture. The skin was approximated with pernio/Dermabond. Sterile dressings were applied. Patient was then awakened, transferred to a bed and taken to recovery in stable condition.
[2019-04-09 13:58] VITALS: BMI 26.9
[2019-04-09] MEDS ORDERED: ACETAMINOPHEN TAB 500 MG TAB PO PRN (14:48)
[2019-04-09] MEDS ORDERED: TRIAMCINOLONE 0.1% CREAM 80 GM TUBE TOPICAL SCH (15:00)
--- NOTE | 2019-04-09 15:08 | FL ---
EXAMINATION TYPE: FL guidance operating room, XR Hip Limited LT DATE OF EXAM: 04/09/2019 HISTORY: 73-year-old female left hip replacement in the OR. FINDINGS: Single intraoperative image shows placement of left total hip arthroplasty. FLUOROSCOPY Fluoroscopy time of 20 seconds was used during anterior left hip replacement. 1 image/s document/s t he procedure. IMPRESSION: Fluoroscopy as above.
--- NOTE | 2019-04-09 20:08 | PN ---
PROGRESS NOTE DATE OF SERVICE: 04/09/2019 REASON FOR CONSULTATION: Advice regarding asthma and other multiple medical issues, requested by Dr. Sampson. HISTORY OF PRESENT ILLNESS: This 73-year-old woman with a past medical history of asthma, GERD, hypertension, hyperlipidemia, history of DJD, history of MRSA, being followed by Dr. Lin in the outpatient setting, underwent left hip arthroplasty via direct anterior approach. Patient is being closely monitored. There is no history of chest pain, no history of palpitations, headache, loss of consciousness, nausea, vomiting, diarrhea, fever, rigor or chills at this time. PAST MEDICAL HISTORY: 1. Asthma. 2. GERD. 3. Hypertension. 4. Hyperlipidemia. 5. History of DJD. HOME MEDICATIONS: 1. Turmeric extract. 2. Kenalog 1 application q.48 hours. 3. Soolantra topically. 4. Benicar 10 mg p.o. daily. 5. Multivitamins 1 p.o. daily. 6. Magnesium oxide 250 mg p.o. daily. 7. Isosorbide ER 30 mg p.o. daily. 8. Hailey 500 mg p.o. daily. 9. Calcium with vitamin D3 one p.o. daily. 10.Biotin 10,000 mcg p.o. daily. 11.Qvar 80 mcg 1 puff b.i.d. 12.Z-Bec 1 tablet p.o. daily. 13.Lipitor 10 mg at bedtime. 14.Tylenol p.r.n. ALLERGIES: 1. CIPRO. 2. LATEX. 3. PENICILLIN. FAMILY HISTORY: History of heart problems and dementia. SOCIAL HISTORY: No history of smoking. No history of alcohol intake. REVIEW OF SYSTEMS: ENT: Diminished hearing. Diminished vision. CARDIOVASCULAR SYSTEM: No angina, palpitations. RESPIRATORY SYSTEM: As mentioned earlier. GI: No nausea, vomiting. : No dysuria or retention. NERVOUS SYSTEM: No numbness, weakness. ALLERGY/IMMUNOLOGY: No asthma, hayfever. MUSCULOSKELETAL: As mentioned earlier. HEMATOLOGY/ONCOLOGY: No history of anemia. ENDOCRINE: No history of diabetes, hypothyroidism. CONSTITUTIONAL: As mentioned earlier. DERMATOLOGY: Negative. RHEUMATOLOGY: Negative. PSYCHIATRY: As mentioned earlier. PHYSICAL EXAMINATION: Patient alert and oriented x3. Pulse is 67, blood pressure 103/59, respirations 16, temperature 97.9, pulse ox 97% on room air. HEENT: Conjunctivae normal. Oral mucosa moist. NECK: No jugular venous distention. No carotid bruit. No lymph node enlargement. CARDIOVASCULAR SYSTEM: S1, S2 muffled. No S3. No S4. RESPIRATORY SYSTEM: Breath sounds diminished at the bases. No rhonchi. No crackles. ABDOMEN: Soft, non-tender. LEGS: Status post surgery. NERVOUS SYSTEM: Higher functions as mentioned earlier. Moves all 4 limbs. No focal motor or sensory deficit. LYMPHATICS: No lymph node palpable in neck, axillae or groin. SKIN: No ulcer, rash, bleeding. JOINTS: As mentioned earlier. LABS: Hemoglobin 9.2 preoperatively. The chemistry is normal. ASSESSMENT: 1. Status post left hip arthroplasty. 2. History of anemia. 3. Asthma. 4. Gastroesophageal reflux disease. 5. Hypertension. 6. Hyperlipidemia. 7. History of degenerative joint disease. 8. History of varicose veins. 9. History of rosacea. 10.History of methicillin-resistant Staphylococcus aeruginosa. RECOMMENDATIONS AND DISCUSSION: In this 73-year-old woman who presented with multiple complex medical issues, we will monitor the patient closely, continue the current management, continue symptomatic treatment. I recommend repeat labs in the morning. DVT prophylaxis. Incentive spirometry. Resume the home medications. We will follow the patient closely with you. The patient may be asked to follow with Dr. Lin closely after discharge. Thank you, Dr. Sampson, for letting us participate in the care of this patient. MMODL / IJN: [id number] /
[2019-04-09] MEDS: HYDROcodone/APAP 7.5-325MG 1 EACH TAB PO PRN (20:26)
[2019-04-09] MEDS ORDERED: ATORVASTATIN 10 MG TAB PO SCH (21:00)
[2019-04-09] MEDS ORDERED: SENNOSIDES-DOCUSATE SODIUM 1 EACH TAB PO SCH (21:00)
[2019-04-10] MEDS: LACTATED RINGERS 1,000 ML IV SCH (02:33)
[2019-04-10 07:00] LABS: Basophils % (A) 0 %; Eosinophils % (A) 0 %; HCT 30.9 % (34.0-46.0); HGB 10.7 gm/dL (11.4-16.0); Lymphocytes % (A) 7 %; MCHC 34.5 g/dL (31.0-37.0); MCV 92.8 fL (80.0-100.0); Mean Platelet Volume 9.3; Monocytes # (A) 0.9 k/uL (0-1.0); Monocytes % (A) 7 %; Neutrophils % (A) 85 %; Platelet Count 145 k/uL (150-450); RBC 3.33 m/uL (3.80-5.40); RDW 14.6 % (11.5-15.5); WBC 14.1 k/uL (3.8-10.6)
--- NOTE | 2019-04-10 07:27 | P.PN ---
Progress Note - Text Progress Note Date: 04/10/19 Patient seen ambulating with a walker this morning. She states her pain is under control. She states that she is doing very well. Incision stable. Distal neurovascular exam is intact. Negative Mosesnegative Homans. Impression: Status post direct anterior left total hip arthroplasty Plan: Physical therapy DVT prophylaxis Will discharge to home today
--- NOTE | 2019-04-10 07:44 | P.DS ---
Providers Date of admission: 04/09/19 08:52 Expected date of discharge: 04/10/19 Attending physician: Sarthak Sampson Consults: 04/09/19 12:22 Consult Physician Routine Consulting Provider: Daryn Moura Consult Reason/Comments: Medical management Do you want consulting provider notified?: Yes Primary care physician: Ovidio Lin Hospital Course: Date of admission: 04/09/2019 Date of discharge: 04/10/2019 Admission diagnosis: Left hip osteoarthritis Discharge diagnosis: Status post direct anterior left total hip arthroplasty Attending physician: Sarthak Sampson DO Surgical procedure: Direct anterior left total hip arthroplasty Brief history: Patient is a 73-year-old female with a history of symptomatic left hip osteoarthritis. At this point patient has failed outpatient conservative treatment measures and has opted to proceed with an elective direct anterior left total hip arthroplasty. Hospital course: Details the patient surgery can be found in the operative report. Patient tolerated the procedure well and was subsequently transported to orthopedic floor. Patient orthopedic and medical care was provided daily. Patient had daily laboratory tests performed for evaluation of overall blood counts. Patient had daily physical therapy to include strengthening, range of motion as well as education with walker ambulation. Patient was treated with Lovenox for the postoperative DVT prophylaxis during there inpatient stay. Patient noted to have a relatively uneventful postoperative course. Patient reported satisfactory pain control with oral pain medication by postoperative day 1. Patient showed satisfactory progress with physical therapy. Patient removed steadily through the program and had no difficulty meeting goals by postop day 1. Given patient's otherwise satisfactory course and having met physical therapy goals, plan is to discharge patient to home on postoperative day 1. Discharge condition/disposition: Patient discharged to home in stable and satisfactory condition. Discharge medications: Patient is prescribed home medications per medicine as well as appropriate oral analgesics and anticoagulants. Discharge instructions: 1. Wound care and infectious precautions, keep incision dry and covered while showering, no lotions, creams, moisturized. No soaking, tubs, pools, hot tubs. Do not scrub over the incision 2. Weight-bear as tolerated with walker/cane until follow-up 3. Ice and elevate when necessary. Do not exceed 20 minutes per hour with ice pack. 4. Utilize compression sleeve until seen first postoperative appointment. 5. Visiting nursing care 6. Home physical therapy . 7. Pain meds and anticoagulations per prescription 8. Pain medication has potential to cause constipation. Increase oral fluid and fiber intake. Contact primary care provider if you have not had a bowel movement within 48 hours after discharge. 9. No anti-inflammatory medication until discussed the first postoperative visit, this includes Motrin, Aleve, Mobic, diclofenac. 10. Follow-up in [facility] in 2 weeks with Balwinder Antonio PA-C 11. Follow up with your primary care doctor 7-10 days after discharge. 12. Contact [facility] with any questions, Plan - Discharge Summary Discharge Rx Participant: Yes New Discharge Prescriptions: New Aspirin [Adult Low Dose Aspirin EC] 81 mg PO BID #60 tablet. Docusate [Colace] 100 mg PO DAILY #30 capsule HYDROcodone/APAP 7.5-325MG [[place] 7.5-325] 1 - 2 each PO Q6HR PRN #56 tab PRN Reason: Pain No Action Turmeric Root Extract [Turmeric] 500 mg PO DAILY Calcium Carb/Vitamin D3/Vit K1 [Viactiv Soft Chew Tablet] 1 tab PO DAILY Multivitamins, Thera [Multivitamin] 1 tab PO DAILY [place] 500 mg PO DAILY Atorvastatin [Lipitor] 10 mg PO HS Beclomethasone Dipropionate [Qvar 80 mcg] 1 puff INHALATION RT-BID Acetaminophen Tab [Tylenol Tab] 500 mg PO HS PRN PRN Reason: Pain B Complex-Vit C-Vit E-Zinc [Z-Bec] 1 tab PO DAILY Isosorbide Mononitrate [Isosorbide Mononitrate ER] 30 mg PO DAILY Olmesartan [Benicar] 10 mg PO DAILY Triamcinolone 0.1% Cream [Kenalog 0.1% Cream] 1 applic TOPICAL Q48H Soolantra 1 applic TOPICAL Q48H Magnesium Oxide [Mag-Ox] 250 mg PO DAILY Biotin 10,000 mcg PO DAILY Discharge Medication List Acetaminophen Tab [Tylenol Tab] 500 mg PO HS PRN 09/14/16 [History] Atorvastatin [Lipitor] 10 mg PO HS 09/14/16 [History] Beclomethasone Dipropionate [Qvar 80 mcg] 1 puff INHALATION RT-BID 09/14/16 [History] Calcium Carb/Vitamin D3/Vit K1 [Viactiv Soft Chew Tablet] 1 tab PO DAILY 09/14/16 [History] Hailey 500 mg PO DAILY 09/14/16 [History] Multivitamins, Thera [Multivitamin] 1 tab PO DAILY 09/14/16 [History] Turmeric Root Extract [Turmeric] 500 mg PO DAILY 09/14/16 [History] B Complex-Vit C-Vit E-Zinc [Z-Bec] 1 tab PO DAILY 09/20/16 [History] Biotin 10,000 mcg PO DAILY 04/03/19 [History] Isosorbide Mononitrate [Isosorbide Mononitrate ER] 30 mg PO DAILY 04/03/19 [History] Magnesium Oxide [Mag-Ox] 250 mg PO DAILY 04/03/19 [History] Olmesartan [Benicar] 10 mg PO DAILY 04/03/19 [History] Soolantra 1 applic TOPICAL Q48H 04/03/19 [History] Triamcinolone 0.1% Cream [Kenalog 0.1% Cream] 1 applic TOPICAL Q48H 04/03/19 [History] Aspirin [Adult Low Dose Aspirin EC] 81 mg PO BID #60 tablet.dr 04/10/19 [Rx] Docusate [Colace] 100 mg PO DAILY #30 capsule 04/10/19 [Rx] HYDROcodone/APAP 7.5-325MG [[place] 7.5-325] 1 - 2 each PO Q6HR PRN #56 tab 04/10/19 [Rx] Follow up Appointment(s)/Referral(s): Johny Antonio, PAC [PHYSICIAN [employer] ENGINE OPERATOR] - 2 Weeks Activity/Diet/Wound Care/Special Instructions: Orthopedic discharge instructions: 1. Wound care infection precautions keep incision dry and covered while showering, no lotions, creams, moisturizers. No soaking, pools, hot tubs. Do not scrub over incision. 2. Weight-bear as tolerated with walker/cane until follow-up 3. Ice and elevate when necessary. Do not exceed 20 minutes per hour with ice pack. 4. Utilize compression sleeve until seen at first follow-up appointment. 5. Pain meds and anticoagulation per prescription. 6. Pain medication is potential to cause constipation. Increase oral fluids and fiber. Contact primary care provider. Has not had a bowel movement within 48 hours of discharge. 7. No anti-inflammatory medication and discussed at first postop visit, this includes Motrin, Aleve, Mobic, diclofenac. 8. Follow up in office at 2 weeks postoperatively with Balwinder Antonio PA-C 9. Follow-up with primary care doctor within 7-10 days after discharge. 10. Contact [facility] with any questions, Discharge Disposition: HOME WITH HOME HEALTH SERVICES
[2019-04-10] MEDS: HYDROcodone/APAP 7.5-325MG 1 EACH TAB PO PRN (07:59)
[2019-04-10 08:05] VITALS: BP 124/66; PULSE 80; RESP 16; TEMP 98.2
[2019-04-10] MEDS ORDERED: ENOXAPARIN 40 MG/0.4 ML SYRINGE SQ SCH (09:00)
[2019-04-10] MEDS ORDERED: NON FORMULARY DRUG (Biotin [Biotin] 10,000 MCG) PO SCH (09:00)
[2019-04-10] MEDS ORDERED: MELOXICAM 7.5 MG TAB PO SCH (09:00)
[2019-04-10] MEDS ORDERED: FAMOTIDINE 20 MG TAB PO SCH (09:00)
[2019-04-10] MEDS ORDERED: NON FORMULARY DRUG (B Complex-Vit C-Vit E-Zinc 1 TAB) PO SCH (09:00)
[2019-04-10] MEDS ORDERED: ISOSORBIDE MONONITRATE ER 30 MG TAB.ER.24H PO SCH (09:00)
[2019-04-10] MEDS ORDERED: MAGNESIUM OXIDE 400 MG TAB PO SCH (09:00)
[2019-04-10] MEDS ORDERED: LOSARTAN 50 MG TAB PO SCH (09:00)
[2019-04-10] MEDS ORDERED: MULTIVITAMINS, THERA 1 EACH TAB PO SCH (09:00)
[2019-04-10 12:36] LABS: Appearance,Urine Clear (Clear); Bilirubin,Urine Negative (Negative); Blood,Urine Negative (Negative); Color,Urine Yellow; Glucose,Urine (UA) Negative (Negative); Ketones,Urine Trace (Negative); Leukocyte Esterase,Urine Negative (Negative); Nitrite,Urine Negative (Negative); PH, Urine 5.5 (5.0-8.0); Protein,Urine Trace (Negative); Specific Gravity,Urine 1.017 (1.001-1.035); Urobilinogen,Urine <2.0 mg/dL (<2.0)
--- NOTE | 2019-04-10 16:36 | PN ---
PROGRESS NOTE DATE OF SERVICE: 04/10/2019. This 73-year-old woman who was admitted after left hip arthroplasty is being closely monitored. No chest pain. No palpitations. No fever. PHYSICAL EXAMINATION: Alert and oriented x3. Pulse 80, blood pressure 124/60, respirations 16, temperature 98.2, pulse ox 96% on room air. HEENT: Conjunctivae normal. C NECK: No jugular venous distention. CARDIOVASCULAR SYSTEM: S1, S2 muffled. RESPIRATORY SYSTEM: Breath sounds diminished at the bases. No rhonchi. No crackles. ABDOMEN: Soft, non-tender. LEGS: Status post arthroplasty. NERVOUS SYSTEM: No focal deficit. LABS: WBC 14.1. UA is unremarkable. ASSESSMENT: 1. Status post left hip arthroplasty. 2. Increased white count, possibly reactive. 3. History of anemia. 4. History of asthma, chronic, intermittent. 5. History of gastroesophageal reflux disease. 6. Hypertension. 7. Hyperlipidemia. 8. History of degenerative joint disease. 9. History of varicose veins. 10.History of rosacea. 11.History of methicillin-resistant Staphylococcus aeruginosa. RECOMMENDATIONS AND DISCUSSION: I recommend to continue current medications, continue with the monitoring, symptomatic treatment. Otherwise, otherwise continue the rest of the medications. Closely follow with Dr. Lin in the outpatient setting. Rest of the recommendations per Surgery. Further recommendations to follow. MMODL / IJN: [id number] /
== END 2019-04-10 13:47 | disposition home health service (06) | DRG 470 ==
LOC: 2ORMAIN 08:52 → 4SSUR 12:56
PROVIDERS: ADMIT Orthopaedic Surgery; ATTEND Orthopaedic Surgery
PROC: 0SRB04A Replacement of Left Hip Joint with Ceramic on Polyethylene Synthetic Substitute, Uncemented, Open Approach (ICD-10-PCS; principal; 2019-04-09 10:15)
DX: M16.12 Unilateral primary osteoarthritis, left hip (principal); I08.3 Combined rheumatic disorders of mitral, aortic and tricuspid valves; E66.9 Obesity, unspecified; D64.9 Anemia, unspecified; I10 Essential (primary) hypertension; J45.30 Mild persistent asthma, uncomplicated; E78.5 Hyperlipidemia, unspecified; E78.00 Pure hypercholesterolemia, unspecified; M85.80 Other specified disorders of bone density and structure, unspecified site; H91.90 Unspecified hearing loss, unspecified ear; K29.40 Chronic atrophic gastritis without bleeding; K44.9 Diaphragmatic hernia without obstruction or gangrene; K21.9 Gastro-esophageal reflux disease without esophagitis; I83.90 Asymptomatic varicose veins of unspecified lower extremity; R32 Unspecified urinary incontinence; M93.90 Osteochondropathy, unspecified of unspecified site; L71.9 Rosacea, unspecified; Z68.27 Body mass index [BMI] 27.0-27.9, adult; Z79.51 Long term (current) use of inhaled steroids; Z79.899 Other long term (current) drug therapy; Z96.641 Presence of right artificial hip joint; Z90.49 Acquired absence of other specified parts of digestive tract; Z98.890 Other specified postprocedural states; Z88.0 Allergy status to penicillin; Z88.1 Allergy status to other antibiotic agents; Z91.040 Latex allergy status; Z86.14 Personal history of Methicillin resistant Staphylococcus aureus infection; Z86.19 Personal history of other infectious and parasitic diseases; Z87.440 Personal history of urinary (tract) infections; Z98.42 Cataract extraction status, left eye; Z98.41 Cataract extraction status, right eye
CPT/HCPCS: 36415; 73501; 81003; 85025; 86850; 86900; 86901; 88300

== ENCOUNTER 2019-05-09 14:27 | Emergency (ER) | payer MEDICARE ==
[2019-05-09 14:42] VITALS: TEMP 98.7
[2019-05-09] MEDS ORDERED: ONDANSETRON 4 MG/2 ML VIAL IVP STA (15:02)
--- NOTE | 2019-05-09 15:06 | ED ---
Female Urogenital HPI - General Chief complaint: Urogenital Stated complaint: Poss UTI Time Seen by Provider: 05/09/19 14:43 Source: patient Mode of arrival: ambulatory Limitations: no limitations - History of Present Illness Initial comments: Patient is a 73-year-old female presenting to emergency Department with a chief complaint of increased urgency and dysuria. Patient reports about 2 weeks ago she developed UTI symptoms and was treated with Macrobid for 7 days. 3 days ago patient reports she went to her primary care for follow-up and give a urine sample. Patient reports she was contacted 2 days after that the culture is positive. Patient continues to have increased urgency and dysuria but no frequency. Patient does report mild midline, suprapubic "fullness". Patient denies any abdominal or back pain. Patient denies fevers or chills. Patient denies hematuria, hematochezia or melena. Patient denies any vaginal bleeding or discharge. - Related Data Home Medications Medication Instructions Recorded Confirmed Acetaminophen Tab [Tylenol Tab] 500 mg PO HS PRN 09/14/16 04/09/19 Atorvastatin [Lipitor] 10 mg PO HS 09/14/16 04/09/19 Beclomethasone Dipropionate [Qvar 1 puff INHALATION RT-BID 09/14/16 04/09/19 80 mcg] Calcium Carb/Vitamin D3/Vit K1 1 tab PO DAILY 09/14/16 04/09/19 [Viactiv Soft Chew Tablet] Hailey 500 mg PO DAILY 09/14/16 04/09/19 Multivitamins, Thera [Multivitamin] 1 tab PO DAILY 09/14/16 04/09/19 Turmeric Root Extract [Turmeric] 500 mg PO DAILY 09/14/16 04/09/19 B Complex-Vit C-Vit E-Zinc [Z-Bec] 1 tab PO DAILY 09/20/16 04/09/19 Biotin 10,000 mcg PO DAILY 04/03/19 04/09/19 Isosorbide Mononitrate [Isosorbide 30 mg PO DAILY 04/03/19 04/09/19 Mononitrate ER] Magnesium Oxide [Mag-Ox] 250 mg PO DAILY 04/03/19 04/09/19 Olmesartan [Benicar] 10 mg PO DAILY 04/03/19 04/09/19 Soolantra 1 applic TOPICAL Q48H 04/03/19 04/09/19 Triamcinolone 0.1% Cream [Kenalog 1 applic TOPICAL Q48H 04/03/19 04/09/19 0.1% Cream] Previous Rx's Medication Instructions Recorded Aspirin [Adult Low Dose Aspirin EC] 81 mg PO BID #60 tablet. 04/10/19 Docusate [Colace] 100 mg PO DAILY #30 capsule 04/10/19 HYDROcodone/APAP 7.5-325MG [[place] 1 - 2 each PO Q6HR PRN #56 tab 04/10/19 7.5-325] Cephalexin [Keflex] 500 mg PO Q6HR #40 cap 05/09/19 Allergies Allergy/AdvReac Type Severity Reaction Status Date / Time ciprofloxacin Allergy Rash/Hives Verified 05/09/19 14:35 latex Allergy Rash/Hives Verified 05/09/19 14:35 Penicillins Allergy Rash/Hives Verified 05/09/19 14:35 Review of Systems ROS Statement: Those systems with pertinent positive or pertinent negative responses have been documented in the HPI. ROS Other: All systems not noted in ROS Statement are negative. Past Medical History Past Medical History: Asthma, GERD/Reflux, Hyperlipidemia, Hypertension Additional Past Medical History / Comment(s): varicose veins,incontinent of urine-has to stand over toilet/commode to empty bladder History of Any Multi-Drug Resistant Organisms: MRSA Date of last positivie culture/infection: 10-23-2012 MDRO Source:: unk Past Surgical History: Bladder Surgery, Joint Replacement, Tonsillectomy, Tubal Ligation Additional Past Surgical History / Comment(s): breast bx x2, bronchoscopy,shelley cataracts, B hip Past Anesthesia/Blood Transfusion Reactions: Motion Sickness Past Psychological History: No Psychological Hx Reported Smoking Status: Never smoker Past Alcohol Use History: None Reported Past Drug Use History: None Reported - Past Family History Mother Additional Family Medical History / Comment(s): heart problems-rheumatic fev er,AlZheimer's Father Additional Family Medical History / Comment(s): AlZheimer's General Exam Limitations: no limitations General appearance: alert, in no apparent distress Head exam: Present: atraumatic, normocephalic, normal inspection Eye exam: Present: normal appearance, PERRL, EOMI Pupils: Present: normal accommodation ENT exam: Present: normal exam, normal oropharynx, mucous membranes moist, TM's normal bilaterally, normal external ear exam Neck exam: Present: normal inspection, full ROM Respiratory exam: Present: normal lung sounds bilaterally Cardiovascular Exam: Present: regular rate, normal rhythm, normal heart sounds GI/Abdominal exam: Present: soft, tenderness (Mild suprapubic tenderness), normal bowel sounds. Absent: distended, guarding, rebound, rigid, mass Extremities exam: Present: normal inspection, full ROM, normal capillary refill Back exam: Present: normal inspection, full ROM Neurological exam: Present: alert, oriented X3 Psychiatric exam: Present: normal affect, normal mood Skin exam: Present: warm, intact, normal color Course Vital Signs 05/09/19 14:35 Temperature 98.7 F Pulse Rate 94 Respiratory 18 Rate Blood Pressure 162/89 O2 Sat by Pulse 99 Oximetry Medical Decision Making - Medical Decision Making Patient is a 73-year-old female presenting to the emergency department with a chief complaint of increased urgency and dysuria. Patient developed the symptoms about 2 weeks ago treated with Macrobid but failed treatment. On physical examination patient does appear to have some, mild suprapubic tenderness. Patient has no CVA tenderness so I'm not suspecting pyelonephritis. Patient's vitals are stable. UA is indicative of a UTI with elevated white blood cells, leukocyte esterase and positive nitrates. Patient will be given a dose of Rocephin and discharged with a 10 day course of Keflex. Patient advised to follow-up with primary care in 10 days. Strict return parameters were thoroughly discussed with patient was understanding and agreeable. Case discussed with physician. - Lab Data Result diagrams: 05/09/19 15:03 05/09/19 15:47 Lab Results 05/09/19 05/09/19 05/09/19 Range/Units 15:03 15:03 15:47 WBC 11.4 H (3.8-10.6) k/uL RBC 3.78 L (3.80-5.40) m/uL Hgb 11.9 (11.4-16.0) gm/dL Hct 36.5 (34.0-46.0) % MCV 96.5 (80.0-100.0) fL MCH 31.4 (25.0-35.0) pg MCHC 32.5 (31.0-37.0) g/dL RDW 14.6 (11.5-15.5) % Plt Count 274 (150-450) k/uL Neutrophils % 70 % Lymphocytes % 21 % Monocytes % 4 % Eosinophils % 2 % Basophils % 1 % Neutrophils # 8.0 H (1.3-7.7) k/uL Lymphocytes # 2.4 (1.0-4.8) k/uL Monocytes # 0.5 (0-1.0) k/uL Eosinophils # 0.2 (0-0.7) k/uL Basophils # 0.1 (0-0.2) k/uL Sodium 140 (137-145) mmol/L Potassium 3.8 (3.5-5.1) mmol/L Chloride 104 (98-107) mmol/L Carbon Dioxide 22 (22-30) mmol/L Anion Gap 14 mmol/L BUN 20 H (7-17) mg/dL Creatinine 0.82 (0.52-1.04) mg/dL Est GFR (CKD-EPI)AfAm 83 (>60 ml/min/1.73 sqM) Est GFR (CKD-EPI)NonAf 72 (>60 ml/min/1.73 sqM) Glucose 98 (74-99) mg/dL Calcium 10.4 H (8.4-10.2) mg/dL Total Bilirubin 0.4 (0.2-1.3) mg/dL AST 23 (14-36) U/L ALT 18 (9-52) U/L Alkaline Phosphatase 96 (38-126) U/L Total Protein 7.4 (6.3-8.2) g/dL Albumin 4.4 (3.5-5.0) g/dL Urine Color Yellow Urine Appearance Turbid H (Clear) Urine pH 6.0 (5.0-8.0) Ur Specific [place] 1.019 (1.001-1.035) Urine Protein 2+ H (Negative) Urine Glucose (UA) Negative (Negative) Urine Ketones Negative (Negative) Urine Blood Small H (Negative) Urine Nitrite Positive H (Negative) Urine Bilirubin Negative (Negative) Urine Urobilinogen <2.0 (<2.0) mg/dL Ur Leukocyte Esterase Large H (Negative) Urine RBC 24 H (0-5) /hpf Urine WBC >182 H (0-5) /hpf Urine WBC Clumps Many H (None) /hpf Ur Squamous Epith Cells 3 (0-4) /hpf Urine Bacteria Few H (None) /hpf Urine Mucus Few H (None) /hpf Disposition Clinical Impression: Urinary tract infection Disposition: HOME SELF-CARE Condition: Stable Instructions (If sedation given, give patient instructions): Urinary Tract Infection in Women (ED) Additional Instructions: Please take prescribed medication as directed. Please follow up with primary care. Please return to emergency department symptoms worsen. Prescriptions: Cephalexin [Keflex] 500 mg PO Q6HR #40 cap Is patient prescribed a controlled substance at d/c from ED?: No Referrals: Ovidio Lin MD [Primary Care Provider] - 1-2 days Time of Disposition: 16:14
[2019-05-09 15:25] LABS: Basophils # (A) 0.1 k/uL (0-0.2); Basophils % (A) 1 %; Eosinophils # (A) 0.2 k/uL (0-0.7); Eosinophils % (A) 2 %; HCT 36.5 % (34.0-46.0); HGB 11.9 gm/dL (11.4-16.0); Lymphocytes # (A) 2.4 k/uL (1.0-4.8); Lymphocytes % (A) 21 %; MCH 31.4 pg (25.0-35.0); MCHC 32.5 g/dL (31.0-37.0); MCV 96.5 fL (80.0-100.0); Mean Platelet Volume 8.9; Monocytes # (A) 0.5 k/uL (0-1.0); Monocytes % (A) 4 %; Neutrophils % (A) 70 %; Platelet Count 274 k/uL (150-450); RBC 3.78 m/uL (3.80-5.40); RDW 14.6 % (11.5-15.5); WBC 11.4 k/uL (3.8-10.6)
[2019-05-09 15:28] LABS: Appearance,Urine Turbid (Clear); Bacteria,Urine Few /hpf; Bilirubin,Urine Negative (Negative); Blood,Urine Small (Negative); Color,Urine Yellow; Glucose,Urine (UA) Negative (Negative); Ketones,Urine Negative (Negative); Leukocyte Esterase,Urine Large (Negative); Mucus,Urine Few /hpf; Nitrite,Urine Positive (Negative); Protein,Urine 2+ (Negative); RBC,Urine 24 /hpf (0-5); Specific Gravity,Urine 1.019 (1.001-1.035); Squamous Epithelial Cell,Urine 3 /hpf (0-4); Urobilinogen,Urine <2.0 mg/dL (<2.0)
[2019-05-09] MEDS ORDERED: cefTRIAXone IN SWFI 1,000 MG/10 ML SYRINGE IVP STA (15:53)
[2019-05-09 16:07] LABS: Albumin 4.4 g/dL (3.5-5.0); Calcium 10.4 mg/dL (8.4-10.2); Potassium 3.8 mmol/L (3.5-5.1); Total Bilirubin 0.4 mg/dL (0.2-1.3); Total Protein 7.4 g/dL (6.3-8.2)
[2019-05-09 16:26] VITALS: BP 158/80; PULSE 80; RESP 16
== END 2019-05-09 16:19 | disposition home or self-care (01) ==
LOC: EC 14:27
DX: N39.0 Urinary tract infection, site not specified (principal); I10 Essential (primary) hypertension; E78.5 Hyperlipidemia, unspecified; J45.909 Unspecified asthma, uncomplicated; K21.9 Gastro-esophageal reflux disease without esophagitis; Z79.899 Other long term (current) drug therapy; Z88.0 Allergy status to penicillin; Z88.1 Allergy status to other antibiotic agents; Z91.040 Latex allergy status
CPT/HCPCS: 36415; 80053; 85025; 81001; 87086; 87077; 87186; 99283; 96374; J0696

== ENCOUNTER 2019-05-17 16:31 | Emergency (ER) | payer MEDICARE ==
[2019-05-17 16:45] VITALS: BP 141/84; PULSE 78; RESP 20; TEMP 98.6
[2019-05-17 17:33] LABS: Appearance,Urine Clear (Clear); Bilirubin,Urine Negative (Negative); Blood,Urine Negative (Negative); Color,Urine Yellow; Glucose,Urine (UA) Negative (Negative); Ketones,Urine Trace (Negative); Leukocyte Esterase,Urine Negative (Negative); Nitrite,Urine Negative (Negative); PH, Urine 6.5 (5.0-8.0); Protein,Urine Trace (Negative); Specific Gravity,Urine 1.016 (1.001-1.035); Urobilinogen,Urine <2.0 mg/dL (<2.0)
--- NOTE | 2019-05-17 18:39 | ED ---
General Adult HPI - General Chief complaint: Recheck/Abnormal Lab/Rx Stated complaint: UTI Time Seen by Provider: 05/17/19 16:51 Source: patient Mode of arrival: ambulatory Limitations: no limitations - History of Present Illness Initial comments: Patient is a 73-year-old female presenting to the emergency Department with complaints of a UTI 2 weeks. Patient states she was started on Keflex for a UTI approximately 1 week ago, and then was called for culture results 4 days ago and was started on a new antibiotic, Levaquin. Patient has taken antibiotic for 3 days now. Patient states she had follow-up with her doctor, Dr. Napier, today who suggested she come to the ER for further evaluation and possible admission. Patient states she is feeling improvement after switching the antibiotic. Patient denies fever, chills, belly pain, burning with urination. Patient has no other complaints at this time. Upon arrival to ER, vital signs are stable. - Related Data Home Medications Medication Instructions Recorded Confirmed Acetaminophen Tab [Tylenol Tab] 500 mg PO HS PRN 09/14/16 04/09/19 Atorvastatin [Lipitor] 10 mg PO HS 09/14/16 04/09/19 Beclomethasone Dipropionate [Qvar 1 puff INHALATION RT-BID 09/14/16 04/09/19 80 mcg] Calcium Carb/Vitamin D3/Vit K1 1 tab PO DAILY 09/14/16 04/09/19 [Viactiv Soft Chew Tablet] Hailey 500 mg PO DAILY 09/14/16 04/09/19 Multivitamins, Thera [Multivitamin] 1 tab PO DAILY 09/14/16 04/09/19 Turmeric Root Extract [Turmeric] 500 mg PO DAILY 09/14/16 04/09/19 B Complex-Vit C-Vit E-Zinc [Z-Bec] 1 tab PO DAILY 09/20/16 04/09/19 Biotin 10,000 mcg PO DAILY 04/03/19 04/09/19 Isosorbide Mononitrate [Isosorbide 30 mg PO DAILY 04/03/19 04/09/19 Mononitrate ER] Magnesium Oxide [Mag-Ox] 250 mg PO DAILY 04/03/19 04/09/19 Olmesartan [Benicar] 10 mg PO DAILY 04/03/19 04/09/19 Soolantra 1 applic TOPICAL Q48H 04/03/19 04/09/19 Triamcinolone 0.1% Cream [Kenalog 1 applic TOPICAL Q48H 04/03/19 04/09/19 0.1% Cream] Previous Rx's Medication Instructions Recorded Aspirin [Adult Low Dose Aspirin EC] 81 mg PO BID #60 tablet. 04/10/19 Docusate [Colace] 100 mg PO DAILY #30 capsule 04/10/19 HYDROcodone/APAP 7.5-325MG [[place] 1 - 2 each PO Q6HR PRN #56 tab 04/10/19 7.5-325] Cephalexin [Keflex] 500 mg PO Q6HR #40 cap 05/09/19 Allergies Allergy/AdvReac Type Severity Reaction Status Date / Time ciprofloxacin Allergy Rash/Hives Verified 05/17/19 16:44 latex Allergy Rash/Hives Verified 05/17/19 16:44 Penicillins Allergy Rash/Hives Verified 05/17/19 16:44 Review of Systems ROS Statement: Those systems with pertinent positive or pertinent negative responses have been documented in the HPI. ROS Other: All systems not noted in ROS Statement are negative. Past Medical History Past Medical History: Asthma, GERD/Reflux, Hyperlipidemia, Hypertension Additional Past Medical History / Comment(s): varicose veins,incontinent of urine-has to stand over toilet/commode to empty bladder History of Any Multi-Drug Resistant Organisms: MRSA Date of last positivie culture/infection: 10-23-2012 MDRO Source:: unk Past Surgical History: Bladder Surgery, Joint Replacement, Tonsillectomy, Tubal Ligation Additional Past Surgical History / Comment(s): breast bx x2, bronchoscopy,shelley cataracts, B hip Past Anesthesia/Blood Transfusion Reactions: Motion Sickness Past Psychological History: No Psychological Hx Reported Smoking Status: Never smoker Past Alcohol Use History: None Reported Past Drug Use History: None Reported - Past Family History Mother Additional Family Medical History / Comment(s): heart problems-rheumatic feve r,AlZheimer's Father Additional Family Medical History / Comment(s): AlZheimer's General Exam - General Exam Comments Initial Comments: GENERAL: Well-appearing, well-nourished and in no acute distress. HEAD: Atraumatic, normocephalic. EYES: Pupils equal round and reactive to light, extraocular movements intact, sclera anicteric, conjunctiva are normal. ENT: Nares patent, oropharynx clear without exudates. Moist mucous membranes. NECK: Normal range of motion, supple without lymphadenopathy or JVD. LUNGS: Breath sounds clear to auscultation bilaterally and equal. No wheezes rales or rhonchi. HEART: Regular rate and rhythm without murmurs, rubs or gallops. ABDOMEN: Soft, nontender, normoactive bowel sounds. No guarding, no rebound. No masses appreciated. : Deferred EXTREMITIES: Normal range of motion, no pitting or edema. No clubbing or cyanosis. NEUROLOGICAL: Cranial nerves II through XII grossly intact. Normal speech, normal gait. PSYCH: Normal mood, normal affect. SKIN: Warm, Dry, normal turgor, no rashes or lesions noted. Limitations: no limitations Course Vital Signs 05/17/19 16:42 Temperature 98.6 F Pulse Rate 78 Respiratory 20 Rate Blood Pressure 141/84 O2 Sat by Pulse 99 Oximetry Medical Decision Making - Medical Decision Making Patient is a 73-year-old female presenting with UTI 2 weeks. Patient saw her PCP today, Dr. Lin, who recommended her come to the ER for further evaluation and possible admission. Patient was started on Keflex one week ago, then after culture resulted, patient was started on Levaquin 3 days ago. Patient reports improvement in her symptoms. Patient's exam today is normal. No fever, chills, nausea, vomiting, abdominal pain. Vital signs are stable. It was recommended to patient to be admitted secondary to PCP's request. Patient is refusing admission. Patient will continue with oral antibiotics and will follow-up with Dr. Lin next week. Patient is in agreement with this plan of care. Strict return parameters were discussed with the patient and she verbalized understanding. Case discussed with Dr. Daley. - Lab Data Lab Results 05/17/19 Range/Units 17:00 Urine Color Yellow Urine Appearance Clear (Clear) Urine pH 6.5 (5.0-8.0) Ur Specific [place] 1.016 (1.001-1.035) Urine Protein Trace H (Negative) Urine Glucose (UA) Negative (Negative) Urine Ketones Trace H (Negative) Urine Blood Negative (Negative) Urine Nitrite Negative (Negative) Urine Bilirubin Negative (Negative) Urine Urobilinogen <2.0 (<2.0) mg/dL Ur Leukocyte Esterase Negative (Negative) Disposition Clinical Impression: Urinary tract infection Disposition: HOME SELF-CARE Condition: Stable Additional Instructions: Please return to the Emergency Department if symptoms worsen or any other concerns. Continue with current antibiotic. Call PCP tomorrow for follow-up. Is patient prescribed a controlled substance at d/c from ED?: No Referrals: Ovidio Lin MD [Primary Care Provider] - 1-2 days
== END 2019-05-17 18:42 | disposition home or self-care (01) ==
LOC: EC 16:31
DX: N39.0 Urinary tract infection, site not specified (principal); J45.909 Unspecified asthma, uncomplicated; E78.5 Hyperlipidemia, unspecified; I10 Essential (primary) hypertension; Z88.0 Allergy status to penicillin; Z88.1 Allergy status to other antibiotic agents; Z91.040 Latex allergy status; Z79.51 Long term (current) use of inhaled steroids; Z79.52 Long term (current) use of systemic steroids; Z79.899 Other long term (current) drug therapy; Z86.14 Personal history of Methicillin resistant Staphylococcus aureus infection; Z98.890 Other specified postprocedural states
CPT/HCPCS: 81003; 99283

== ENCOUNTER → 2019-07-13 | Outpatient (CLI) | payer MEDICARE ==
--- NOTE | 2019-07-20 09:58 | MM ---
Reason for exam: screening (asymptomatic). Last mammogram was performed 1 year and 3 months ago. History: Patient is postmenopausal. Benign left US cyst aspiration of the left breast, May 29, 2007. Benign US right core biopsy of the right breast, May 29, 2007. Core biopsy of the right breast, June 20, 2006. Took estrogen for 4 years 6 months beginning at age 56. Physical Findings: A clinical breast exam by your physician is recommended on an annual basis and results should be correlated with mammographic findings. MG 3D Screening Mammo W/Cad Bilateral CC and MLO view(s) were taken. Prior study comparison: April 06, 2018, bilateral MG 3d screening mammo w/cad. March 08, 2017, bilateral MG 3d screening mammo w/cad. The breast tissue is heterogeneously dense. This may lower the sensitivity of mammography. Previous mammotome biopsy in the right breast. Benign oil cyst calcifications bilaterally. No significant changes when compared with prior studies. ASSESSMENT: Benign, BI-RAD 2 RECOMMENDATION: Routine screening mammogram of both breasts in 1 year.
== END | disposition home or self-care (01) ==
LOC: RADMAMWWP 16:23
PROVIDERS: ATTEND Internal Medicine Geriatric Medicine
DX: Z12.31 Encounter for screening mammogram for malignant neoplasm of breast (principal)
CPT/HCPCS: 77063; 77067

== ENCOUNTER 2020-08-29 17:08 | Emergency (ER) | payer MEDICARE ==
[2020-08-29 17:12] VITALS: BP 199/111; TEMP 98.6
[2020-08-29 17:58] LABS: Appearance,Urine Clear (Clear); Bacteria,Urine Rare /hpf; Bilirubin,Urine Negative (Negative); Blood,Urine Moderate (Negative); Budding Yeast,Urine Few /hpf; Color,Urine Yellow; Glucose,Urine (UA) Negative (Negative); Ketones,Urine Negative (Negative); Leukocyte Esterase,Urine Large (Negative); Mucus,Urine Rare /hpf; Nitrite,Urine Negative (Negative); PH, Urine 7.5 (5.0-8.0); Protein,Urine 2+ (Negative); RBC,Urine 101 /hpf (0-5); Specific Gravity,Urine 1.009 (1.001-1.035); Urobilinogen,Urine <2.0 mg/dL (<2.0); WBC,Urine 103 /hpf (0-5)
[2020-08-29] MEDS ORDERED: cefTRIAXone 1,000 MG VIAL (IM USE) IM STA (18:31)
--- NOTE | 2020-08-29 18:37 | ED ---
Female Urogenital HPI - General Source: patient Mode of arrival: ambulatory Limitations: no limitations <Na Parks - Last Filed: 08/29/20 18:31> <Ollie Murillo - Last Filed: 08/29/20 18:55> - General Chief complaint: Urogenital Stated complaint: UTI Time Seen by Provider: 08/29/20 17:15 - History of Present Illness Initial comments: patient is a 74-year-old female presenting to the emergency Department with complaints of dysuria, increasing frequency over the past week. Patient denies any fever or chills, no abdominal pain or nausea or vomiting. She states she is having some vaginal irritation and some vaginal itchiness as well. She has had UTIs in the past and this feels similar. Patient has no further complaints at this time. Upon arrival to the ER, her vital signs are stable. (Na Parks) - Related Data Home Medications Medication Instructions Recorded Confirmed Acetaminophen Tab [Tylenol Tab] 500 mg PO HS PRN 09/14/16 04/09/19 Atorvastatin [Lipitor] 10 mg PO HS 09/14/16 04/09/19 Beclomethasone Dipropionate [Qvar 1 puff INHALATION RT-BID 09/14/16 04/09/19 80 mcg] Calcium Carb/Vitamin D3/Vit K1 1 tab PO DAILY 09/14/16 04/09/19 [Viactiv Soft Chew Tablet] Hailey 500 mg PO DAILY 09/14/16 04/09/19 Multivitamins, Thera [Multivitamin] 1 tab PO DAILY 09/14/16 04/09/19 Turmeric Root Extract [Turmeric] 500 mg PO DAILY 09/14/16 04/09/19 B Complex-Vit C-Vit E-Zinc [Z-Bec] 1 tab PO DAILY 09/20/16 04/09/19 Biotin 10,000 mcg PO DAILY 04/03/19 04/09/19 Isosorbide Mononitrate [Isosorbide 30 mg PO DAILY 04/03/19 04/09/19 Mononitrate ER] Magnesium Oxide [Mag-Ox] 250 mg PO DAILY 04/03/19 04/09/19 Olmesartan [Benicar] 10 mg PO DAILY 04/03/19 04/09/19 Soolantra 1 applic TOPICAL Q48H 04/03/19 04/09/19 Triamcinolone 0.1% Cream [Kenalog 1 applic TOPICAL Q48H 04/03/19 04/09/19 0.1% Cream] Previous Rx's Medication Instructions Recorded Aspirin [Adult Low Dose Aspirin EC] 81 mg PO BID #60 tablet. 04/10/19 Docusate [Colace] 100 mg PO DAILY #30 capsule 04/10/19 HYDROcodone/APAP 7.5-325MG [[place] 1 - 2 each PO Q6HR PRN #56 tab 04/10/19 7.5-325] Cephalexin [Keflex] 500 mg PO Q6HR #40 cap 05/09/19 Cephalexin [Keflex] 500 mg PO BID 7 Days #14 cap 08/29/20 Fluconazole [Diflucan] 150 mg PO ONCE #1 tab 08/29/20 Allergies Allergy/AdvReac Type Severity Reaction Status Date / Time ciprofloxacin Allergy Rash/Hives Verified 08/29/20 17:12 latex Allergy Rash/Hives Verified 08/29/20 17:12 Penicillins Allergy Rash/Hives Verified 08/29/20 17:12 Review of Systems ROS Other: All systems not noted in ROS Statement are negative. <Na Parks - Last Filed: 08/29/20 18:31> ROS Other: All systems not noted in ROS Statement are negative. <Ollie Murillo - Last Filed: 08/29/20 18:55> ROS Statement: Those systems with pertinent positive or pertinent negative responses have been documented in the HPI. Past Medical History Past Medical History: Asthma, GERD/Reflux, Hyperlipidemia, Hypertension Additional Past Medical History / Comment(s): varicose veins,incontinent of urine-has to stand over toilet/commode to empty bladder History of Any Multi-Drug Resistant Organisms: MRSA Date of last positivie culture/infection: 10-23-2012 MDRO Source:: unk Past Surgical History: Bladder Surgery, Joint Replacement, Tonsillectomy, Tubal Ligation Additional Past Surgical History / Comment(s): breast bx x2, bronchoscopy,shelley cataracts, B hip Past Anesthesia/Blood Transfusion Reactions: Motion Sickness Past Psychological History: No Psychological Hx Reported Smoking Status: Never smoker Past Alcohol Use History: None Reported Past Drug Use History: None Reported - Past Family History Mother Additional Family Medical History / Comment(s): heart problems-rheumatic fever,AlZheimer's Father Additional Family Medical History / Comment(s): AlZheimer's <KaseyNa Neil - Last Filed: 08/29/20 18:31> General Exam Limitations: no limitations <Na Parks Jolynn - Last Filed: 08/29/20 18:31> - General Exam Comments Initial Comments: GENERAL: Patient is well-developed and well-nourished. Patient is nontoxic and in no acute distress. HEAD: Atraumatic, normocephalic. EYES: Pupils equal round and reactive to light, extraocular movements intact, sclera anicteric, conjunctiva are normal. Eyelids were unremarkable. ENT: TMs normal, nares patent, oropharynx clear without exudates. Moist mucous membranes. NECK: Normal range of motion, supple without lymphadenopathy or JVD. LUNGS: Unlabored respirations. Breath sounds clear to auscultation bilaterally and equal. No wheezes rales or rhonchi. HEART: Regular rate and rhythm without murmurs, rubs or gallops. ABDOMEN: Soft, nontender, normoactive bowel sounds. No guarding, no rebound. No masses appreciated. : Deferred MUSCULOSKELETAL: Normal extremities with adequate strength and normal range of motion, no pitting or edema. No clubbing or cyanosis. NEUROLOGICAL: Patient is alert and oriented x 3. Motor and sensory are also intact. Cranial nerves II through XII grossly intact. Symmetrical smile. Normal speech, normal gait. PSYCH: Normal mood, normal affect. SKIN: Warm, Dry, normal turgor, no rashes or lesions noted. (Na Parks) Course <Ollie Murillo - Last Filed: 08/29/20 18:55> Vital Signs 08/29/20 17:09 Temperature 98.6 F Pulse Rate 68 Respiratory 18 Rate Blood Pressure 199/111 O2 Sat by Pulse 98 Oximetry - Reevaluation(s) Reevaluation #1: 08/29/20 18:55 PA supervision: I did proceed evaluate this case patient did present with complaints of urinary symptoms 1F for about a week. No overt fevers chills sweats. The presentation was consistent clinically with a UTI this was borne out with the lab results. Patient was placed on appropriate antibiotics. She will follow-up as needed and return when necessary. (Ollie Murillo) Medical Decision Making <Na Parks - Last Filed: 08/29/20 18:31> - Medical Decision Making patient is a 74-year-old female here with dysuria, increasing frequency over the past week. No fevers, her vitals are stable. Urine shows moderate amount of blood, large amount leukocyte Estrace and WBCs, bacteria as well as yeast. Patient will be given 1 g Rocephin in the ER before discharge. I will continue her on Keflex as well as a single dose of Diflucan. She will follow-up with her PCP next week. Patient is stable for discharge. Patient is in agreement with this plan of care. Return parameters were discussed with the patient and they verbalized understanding. Case discussed with Dr. Murillo. (Na Parks) - Lab Data Lab Results 08/29/20 Range/Units 17:43 Urine Color Yellow Urine Appearance Clear (Clear) Urine pH 7.5 (5.0-8.0) Ur Specific [place] 1.009 (1.001-1.035) Urine Protein 2+ H (Negative) Urine Glucose (UA) Negative (Negative) Urine Ketones Negative (Negative) Urine Blood Moderate H (Negative) Urine Nitrite Negative (Negative) Urine Bilirubin Negative (Negative) Urine Urobilinogen <2.0 (<2.0) mg/dL Ur Leukocyte Esterase Large H (Negative) Urine RBC 101 H (0-5) /hpf Urine WBC 103 H (0-5) /hpf Urine Bacteria Rare H (None) /hpf Urine Mucus Rare H (None) /hpf Urine Yeast (Budding) Few H (None) /hpf Disposition Is patient prescribed a controlled substance at d/c from ED?: No <Na Parks - Last Filed: 08/29/20 18:31> <Ollie Murillo - Last Filed: 08/29/20 18:55> Clinical Impression: Urinary tract infection, Vaginal yeast infection Disposition: HOME SELF-CARE Condition: Stable Instructions (If sedation given, give patient instructions): Urinary Tract Infection in Women (ED) Additional Instructions: Please return to the Emergency Department if symptoms worsen or any other concerns. These take antibiotics as prescribed, you may start these tomorrow. Please take single dose of Diflucan for the yeast. Please follow-up with your regular doctor. Prescriptions: Fluconazole [Diflucan] 150 mg PO ONCE #1 tab Cephalexin [Keflex] 500 mg PO BID 7 Days #14 cap Referrals: Juni Goldberg MD [Primary Care Provider] - 1-2 days
[2020-08-29 19:13] VITALS: PULSE 72; RESP 16
== END 2020-08-29 19:11 | disposition home or self-care (01) ==
LOC: EC 17:08
DX: N39.0 Urinary tract infection, site not specified (principal); B37.3 Candidiasis of vulva and vagina; J45.909 Unspecified asthma, uncomplicated; K21.9 Gastro-esophageal reflux disease without esophagitis; E78.5 Hyperlipidemia, unspecified; I10 Essential (primary) hypertension; Z79.51 Long term (current) use of inhaled steroids; Z79.899 Other long term (current) drug therapy; Z91.040 Latex allergy status; Z88.0 Allergy status to penicillin; Z88.1 Allergy status to other antibiotic agents; Z86.14 Personal history of Methicillin resistant Staphylococcus aureus infection; Z98.42 Cataract extraction status, left eye; Z98.41 Cataract extraction status, right eye; Z96.643 Presence of artificial hip joint, bilateral
CPT/HCPCS: 81001; 87086; 99283; 96372; J0696

== ENCOUNTER → 2020-09-12 | Outpatient (CLI) | payer MEDICARE ==
--- NOTE | 2020-09-15 11:53 | MM ---
Reason for exam: screening (asymptomatic). Last mammogram was performed 1 year and 2 months ago. History: Patient is postmenopausal. Benign left US cyst aspiration of the left breast, May 29, 2007. Benign US right core biopsy of the right breast, May 29, 2007. Core biopsy of the right breast, June 20, 2006. Took estrogen for 4 years 6 months beginning at age 56. Physical Findings: A clinical breast exam by your physician is recommended on an annual basis and results should be correlated with mammographic findings. MG 3D Screening Mammo W/Cad Bilateral CC and MLO view(s) were taken. Prior study comparison: July 13, 2019, bilateral MG 3d screening mammo w/cad. April 06, 2018, bilateral MG 3d screening mammo w/cad. The breast tissue is heterogeneously dense. This may lower the sensitivity of mammography. Previous mammotome biopsy in the right breast. Benign oil cyst calcifications. No significant changes when compared with prior studies. ASSESSMENT: Negative, BI-RAD 1 RECOMMENDATION: Routine screening mammogram of both breasts in 1 year.
== END | disposition home or self-care (01) ==
LOC: RADMAMWWP 10:56
PROVIDERS: ATTEND Internal Medicine Geriatric Medicine
DX: Z12.31 Encounter for screening mammogram for malignant neoplasm of breast (principal)
CPT/HCPCS: 77063; 77067

== ENCOUNTER → 2021-10-20 | Outpatient (CLI) | payer MEDICARE ==
--- NOTE | 2021-10-21 10:20 | MM ---
Reason for exam: screening (asymptomatic). Last mammogram was performed 1 year and 1 month ago. History: Patient is postmenopausal and history of other cancer. Benign left US cyst aspiration of the left breast, May 29, 2007. Benign US right core biopsy of the right breast, May 29, 2007. Core biopsy of the right breast, June 20, 2006. Took estrogen for 4 years 6 months beginning at age 56. Physical Findings: A clinical breast exam by your physician is recommended on an annual basis and results should be correlated with mammographic findings. MG 3D Screening Mammo W/Cad Bilateral CC and MLO view(s) were taken. Prior study comparison: September 12, 2020, bilateral MG 3d screening mammo w/cad. July 13, 2019, bilateral MG 3d screening mammo w/cad. The breast tissue is heterogeneously dense. This may lower the sensitivity of mammography. There are benign appearing round calcifications bilaterally. Previous mammotome biopsy in the right breast. There is no discrete abnormality. ASSESSMENT: Benign, BI-RAD 2 RECOMMENDATION: Routine screening mammogram of both breasts in 1 year.
== END | disposition home or self-care (01) ==
LOC: RADMAMWWP 16:26
PROVIDERS: ATTEND Internal Medicine Geriatric Medicine
DX: Z12.31 Encounter for screening mammogram for malignant neoplasm of breast (principal); Z78.0 Asymptomatic menopausal state
CPT/HCPCS: 77063; 77067

== ENCOUNTER → 2022-03-03 | Outpatient (CLI) | payer MEDICARE ==
--- NOTE | 2022-03-03 10:32 | US ---
EXAMINATION TYPE: US kidneys/renal and bladder DATE OF EXAM: 03/03/2022 COMPARISON: US 2012, CT 2019 CLINICAL HISTORY: N30.21 Other chronic cystitis with hematuria. Recurrent UTI's EXAM MEASUREMENTS: Right Kidney: 9.4 x 5.1 x 4.5 cm Left Kidney: 10.1 x 4.7 x 4.2 cm Right Kidney: No hydronephrosis or masses seen Left Kidney: No hydronephrosis or masses seen Bladder: wnl Bilateral Jets seen: yes IMPRESSION: 1. No acute ultrasound abnormality bilateral kidneys.
== END | disposition home or self-care (01) ==
LOC: RADUSWWP 08:34
PROVIDERS: ATTEND Urology
DX: N30.21 Other chronic cystitis with hematuria (principal)
CPT/HCPCS: 76770

== ENCOUNTER 2022-04-20 04:33 | Emergency (ER) | payer MEDICARE ==
[2022-04-20 04:43] VITALS: BP 146/89; RESP 18; TEMP 98.2
[2022-04-20] MEDS ORDERED: IPRATROPIUM-ALBUTEROL 3 ML NEB INHALATION STA (04:57)
[2022-04-20 05:35] VITALS: PULSE 75
--- NOTE | 2022-04-20 05:36 | XR ---
EXAMINATION TYPE: XR chest 2V DATE OF EXAM: 04/20/2022 COMPARISON: NONE HISTORY: Cough and chest pain TECHNIQUE: FINDINGS: Heart and mediastinum are normal. Lungs are clear of infiltrate. No heart failure. There ar e no hilar masses. Costophrenic angles are clear. Thoracic ureter is atheromatous. IMPRESSION: Atheromatous aorta. No active cardiopulmonary disease.
[2022-04-20] MEDS ORDERED: DOXYCYCLINE 100 MG CAP PO STA (05:50)
[2022-04-20] MEDS ORDERED: predniSONE 20 MG TAB PO STA (05:51)
--- NOTE | 2022-04-20 05:56 | ED ---
SOB HPI - General Chief Complaint: Shortness of Breath Stated Complaint: Cough Time Seen by Provider: 04/20/22 04:40 Source: patient, family Mode of arrival: ambulatory - History of Present Illness Initial Comments: 76-year-old female with mild intermittent asthma presents emergency room with reported cough. States that for the past week she has had a sore throat, nasal congestion and a productive cough. Denies any sick contacts with similar symptoms. Admits to mild associated shortness of breath. Does have an inhaler at home that she has been attempting to use however it is . Denies any chest pain, fevers, nausea, vomiting or diarrhea. No current antibiotic or steroid use. No history of congestive heart failure. No calf pain or swelling. No other alleviating, precipitating or modifying factors - Related Data Home Medications Medication Instructions Recorded Confirmed Acetaminophen Tab [Tylenol Tab] 500 mg PO HS PRN 09/14/16 04/09/19 Atorvastatin [Lipitor] 10 mg PO HS 09/14/16 04/09/19 Beclomethasone Dipropionate [Qvar 1 puff INHALATION RT-BID 09/14/16 04/09/19 80 mcg] Calcium Carb/Vitamin D3/Vit K1 1 tab PO DAILY 09/14/16 04/09/19 [Viactiv Soft Chew Tablet] Hailey 500 mg PO DAILY 09/14/16 04/09/19 Multivitamins, Thera [Multivitamin] 1 tab PO DAILY 09/14/16 04/09/19 Turmeric Root Extract [Turmeric] 500 mg PO DAILY 09/14/16 04/09/19 B Complex-Vit C-Vit E-Zinc [Z-Bec] 1 tab PO DAILY 09/20/16 04/09/19 Biotin 10,000 mcg PO DAILY 04/03/19 04/09/19 Isosorbide Mononitrate [Isosorbide 30 mg PO DAILY 04/03/19 04/09/19 Mononitrate ER] Magnesium Oxide [Mag-Ox] 250 mg PO DAILY 04/03/19 04/09/19 Olmesartan [Benicar] 10 mg PO DAILY 04/03/19 04/09/19 Soolantra 1 applic TOPICAL Q48H 04/03/19 04/09/19 Triamcinolone 0.1% Cream [Kenalog 1 applic TOPICAL Q48H 04/03/19 04/09/19 0.1% Cream] Previous Rx's Medication Instructions Recorded Aspirin [Adult Low Dose Aspirin EC] 81 mg PO BID #60 tablet.dr 04/10/19 Docusate [Colace] 100 mg PO DAILY #30 capsule 04/10/19 HYDROcodone/APAP 7.5-325MG [[place] 1 - 2 each PO Q6HR PRN #56 tab 04/10/19 7.5-325] Cephalexin [Keflex] 500 mg PO Q6HR #40 cap 05/09/19 Cephalexin [Keflex] 500 mg PO BID 7 Days #14 cap 08/29/20 Fluconazole [Diflucan] 150 mg PO ONCE #1 tab 08/29/20 Albuterol Nebulized [Ventolin 2.5 mg INHALATION Q4H PRN #75 ml 04/20/22 Nebulized] Albuterol Sulfate [Proair Hfa] 1 - 2 puff INHALATION Q4HR PRN 04/20/22 #8.5 gm Doxycycline Hyclate 100 mg PO BID 1 Days #20 tab 04/20/22 predniSONE [Deltasone] 20 mg PO BID #10 tab 04/20/22 Allergies Allergy/AdvReac Type Severity Reaction Status Date / Time ciprofloxacin Allergy Rash/Hives Verified 04/20/22 04:43 latex Allergy Rash/Hives Verified 04/20/22 04:43 Penicillins Allergy Rash/Hives Verified 04/20/22 04:43 Review of Systems ROS Statement: Those systems with pertinent positive or pertinent negative responses have been documented in the HPI. ROS Other: All systems not noted in ROS Statement are negative. Past Medical History Past Medical History: Asthma, GERD/Reflux, Hyperlipidemia, Hypertension Additional Past Medical History / Comment(s): varicose veins,incontinent of urine-has to stand over toilet/commode to empty bladder History of Any Multi-Drug Resistant Organisms: MRSA Date of last positivie culture/infection: 10-23-2012 MDRO Source:: unk Past Surgical History: Bladder Surgery, Joint Replacement, Tonsillectomy, Tubal Ligation Additional Past Surgical History / Comment(s): breast bx x2, bronchoscopy,shelley cataracts, B hip Past Anesthesia/Blood Transfusion Reactions: Motion Sickness Past Psychological History: No Psychological Hx Reported Smoking Status: Never smoker Past Alcohol Use History: None Reported Past Drug Use History: None Reported - Past Family History Mother Additional Family Medical History / Comment(s): heart problems-rheumatic fever,AlZheimer's Father Additional Family Medical History / Comment(s): AlZheimer's General Exam General appearance: alert, in no apparent distress Head exam: Present: atraumatic, normocephalic, normal inspection Eye exam: Present: normal appearance, PERRL, EOMI. Absent: scleral icterus, conjunctival injection, periorbital swelling ENT exam: Present: normal exam, mucous membranes moist Neck exam: Present: normal inspection. Absent: tenderness, meningismus, lymphadenopathy Respiratory exam: Present: wheezes, rhonchi, other (Bronchospasm). Absent: respiratory distress, rales, stridor Cardiovascular Exam: Present: regular rate, normal rhythm, normal heart sounds. Absent: systolic murmur, diastolic murmur, rubs, gallop, clicks GI/Abdominal exam: Present: soft, normal bowel sounds. Absent: distended, tenderness, guarding, rebound, rigid Extremities exam: Present: normal inspection, full ROM, normal capillary refill. Absent: tenderness, pedal edema, joint swelling, calf tenderness Back exam: Present: normal inspection Neurological exam: Present: alert, oriented X3, CN II-XII intact Psychiatric exam: Present: normal affect, normal mood Skin exam: Present: warm, dry, intact, normal color. Absent: rash Course Vital Signs 04/20/22 04/20/22 04/20/22 04:35 05:30 05:34 Temperature 98.2 F Pulse Rate 73 73 75 Respiratory 18 Rate Blood Pressure 146/89 O2 Sat by Pulse 98 Oximetry Medical Decision Making - Medical Decision Making Upon arrival patient is placed into room 2. There are history of physical exam is performed. She is swabbed for Covid and influenza which are negative. Chest x-rays performed which demonstrates no acute process. She was given a DuoNeb breathing treatment. Patient also provided with a dose of doxycycline and prednisone. Patient will be given prescriptions for both. Also gave the patient a prescription for albuterol inhaler and albuterol for the nebulizer. Instructed to use the albuterol every 4 hours. Follow up with the primary care doctor in 2 to 4 days and return for any new or worsening symptoms. Patient was agreeable to treatment plan and discharged home in stable condition - Lab Data Lab Results 04/20/22 04/20/22 Range/Units 05:03 05:03 Coronavirus (PCR) Not Detected (Not Detectd) Influenza Type A RNA Not Detected (Not Detectd) Influenza Type B (PCR) Not Detected (Not Detectd) Disposition Clinical Impression: Cough, Tracheobronchitis Disposition: HOME SELF-CARE Condition: Stable Instructions (If sedation given, give patient instructions): Bronchospasm (ED) Additional Instructions: Take the antibiotic twice daily, starting tonight. Take the steroids twice daily and start them tomorrow. Use the nebulizer or inhaler every 4 hours. Return for any new or worsening symptoms Prescriptions: predniSONE [Deltasone] 20 mg PO BID #10 tab Doxycycline Hyclate 100 mg PO BID 1 Days #20 tab Albuterol Sulfate [Proair Hfa] 1 - 2 puff INHALATION Q4HR PRN #8.5 gm PRN Reason: difficulty in breathing Albuterol Nebulized [Ventolin Nebulized] 2.5 mg INHALATION Q4H PRN #75 ml PRN Reason: difficulty in breathing Is patient prescribed a controlled substance at d/c from ED?: No Referrals: Juni Goldberg MD [Primary Care Provider] - 1-2 days Time of Disposition: 05:56
== END 2022-04-20 06:11 | disposition home or self-care (01) ==
LOC: EC 04:33
DX: J40 Bronchitis, not specified as acute or chronic (principal); I10 Essential (primary) hypertension; K21.9 Gastro-esophageal reflux disease without esophagitis; E78.5 Hyperlipidemia, unspecified; Z79.51 Long term (current) use of inhaled steroids; Z79.82 Long term (current) use of aspirin; Z79.899 Other long term (current) drug therapy; Z88.0 Allergy status to penicillin; Z91.040 Latex allergy status; Z88.1 Allergy status to other antibiotic agents; Z20.822 Contact with and (suspected) exposure to COVID-19
CPT/HCPCS: 99285; 94640; 87502; 87635; 71046; J7512

== ENCOUNTER → 2022-10-21 | Outpatient (CLI) | payer MEDICARE ==
--- NOTE | 2022-10-22 07:52 | MM ---
Reason for Exam: Screening (asymptomatic). Last screening mammogram was performed 12 month(s) ago. Patient History: Menarche at age 14. First Full-Term at age 21. Hysterectomy at age 52. Postmenopausal. Other cancer. Estrogen, starting at age 56 for 4 years, 6 months. 06/20/2006, Core Biopsy on the Right side. 05/29/2007, Benign Cyst Aspiration on the left side. 05/29/2007, Benign Core Biopsy on the right side. Risk Values: Maria Esther 5 year model risk: 2.4%. NCI Lifetime model risk: 5.1%. Prior Study Comparison: 07/13/2019 Bilateral Screening Mammogram, [facility]. 09/12/2020 Bilateral Screening Mammogram, [facility]. 10/20/2021 Bilateral Screening Mammogram, [facility]. Tissue Density: The breast tissue is heterogeneously dense. This may lower the sensitivity of mammography. Findings: Analyzed By CAD. There is no suspicious group of microcalcifications or new suspicious mass in either breast. Overall Assessment: Benign, BI-RAD 2 Management: Screening Mammogram of both breasts in 1 year. A clinical breast exam by your physician is recommended on an annual basis and results should be correlated with mammographic findings. Electronically signed and approved by: Chavo Riley M.D. Radiologis
== END | disposition home or self-care (01) ==
LOC: RADMAMWWP 08:49
PROVIDERS: ATTEND Internal Medicine Geriatric Medicine
DX: Z12.31 Encounter for screening mammogram for malignant neoplasm of breast (principal); Z78.0 Asymptomatic menopausal state; Z98.890 Other specified postprocedural states
CPT/HCPCS: 77063; 77067

== ENCOUNTER → 2022-12-02 | Outpatient (CLI) | payer MEDICARE ==
--- NOTE | 2022-12-02 10:49 | MR ---
EXAMINATION TYPE: MR brain wo/w con DATE OF EXAM: 12/02/2022 COMPARISON: CT brain 12/29/2009 HISTORY: Cerebral Infarction, Hx stroke 20yrs ago TECHNIQUE: Multiplanar, multisequence images of the brain and brainstem is performed without and with IV contras t, utilizing 6.5 mL intravenous Gadavist . FINDINGS: Diffusion weighted images demonstrate no evidence of a recent infarct or other diffusion ab normality. There is moderate generalized degenerative change. There is diffuse and focal areas of ab normal signal in white matter. Findings most typical of remote white matter ischemia. Midline structures demonstrate normal morphology. The craniocervical junction appears within normal limits. Post contrast images demonstrate no abnormal enhancement. The dural venous sinuses appear pa tent. The visualized sinuses are clear and the globes are intact. There is an area of low signal on T 2 imaging along the inner table of the right cerebral convexity best noted on axial image 19 likely r elated to either a small calcified meningioma or osteoma. Area of signal seen in the posterior nasoph arynx may represent parti al vol ume averaging. IMPRESSION: 1. Moderate generalized degenerative and extensive nonspecific white matter changes most typical of r emote microvascular ischemia. 2. Subcentimeter extra-axial lesion along the right cerebral convexity most typical of osteoma or kaity cified meningioma. No significant mass effect. Finding is stable from CT scan of 2009.
== END | disposition home or self-care (01) ==
LOC: RADMRIMAIN 09:00
PROVIDERS: ATTEND Internal Medicine Geriatric Medicine
DX: I63.9 Cerebral infarction, unspecified (principal); G31.9 Degenerative disease of nervous system, unspecified; R90.82 White matter disease, unspecified; I67.82 Cerebral ischemia
CPT/HCPCS: 70553; A9585

== ENCOUNTER 2023-09-16 13:26 | Emergency (ER) | payer MEDICARE ==
--- NOTE | 2023-09-16 14:34 | ED ---
Dizziness HPI - General Chief Complaint: Syncope Stated Complaint: Syncope Time Seen by Provider: 09/16/23 14:33 Source: patient, family, RN notes reviewed Mode of arrival: wheelchair Limitations: no limitations - History of Present Illness Initial Comments: Patient is 77-year-old male presented to ER with chief complaint of syncopal episode. Patient states she was taking a hot shower this morning and started to feel like she was going to blackout. Patient fell to her knees. She states she called for her who helped her get up. She also reports an episode of diarrhea while trying to get up from the bathroom floor. Denies any head injur y, loss of consciousness, blood thinner use. Denies any chest pain, shortness of breath, fevers, chills. She does report she has been having some recent congestion and gets frequent UTIs. Patient is reporting left ankle pain and right shoulder pain from when she fell to the bathroom floor. - Related Data Home Medications Medication Instructions Recorded Confirmed Acetaminophen Tab [Tylenol Tab] 500 mg PO HS PRN 09/14/16 04/09/19 Atorvastatin [Lipitor] 10 mg PO HS 09/14/16 04/09/19 Beclomethasone Dipropionate [Qvar 1 puff INHALATION RT-BID 09/14/16 04/09/19 80 mcg] Calcium Carb/Vitamin D3/Vit K1 1 tab PO DAILY 09/14/16 04/09/19 [Viactiv Soft Chew Tablet] Hailey 500 mg PO DAILY 09/14/16 04/09/19 Multivitamins, Thera [Multivitamin] 1 tab PO DAILY 09/14/16 04/09/19 Turmeric Root Extract [Turmeric] 500 mg PO DAILY 09/14/16 04/09/19 B Complex-Vit C-Vit E-Zinc [Z-Bec] 1 tab PO DAILY 09/20/16 04/09/19 Biotin 10,000 mcg PO DAILY 04/03/19 04/09/19 Isosorbide Mononitrate [Isosorbide 30 mg PO DAILY 04/03/19 04/09/19 Mononitrate ER] Magnesium Oxide [Mag-Ox] 250 mg PO DAILY 04/03/19 04/09/19 Olmesartan [Benicar] 10 mg PO DAILY 04/03/19 04/09/19 Soolantra 1 applic TOPICAL Q48H 04/03/19 04/09/19 Triamcinolone 0.1% Cream [Kenalog 1 applic TOPICAL Q48H 04/03/19 04/09/19 0.1% Cream] Previous Rx's Medication Instructions Recorded Aspirin [Adult Low Dose Aspirin EC] 81 mg PO BID #60 tablet. 04/10/19 Docusate [Colace] 100 mg PO DAILY #30 capsule 04/10/19 HYDROcodone/APAP 7.5-325MG [[place] 1 - 2 each PO Q6HR PRN #56 tab 04/10/19 7.5-325] Cephalexin [Keflex] 500 mg PO Q6HR #40 cap 05/09/19 Cephalexin [Keflex] 500 mg PO BID 7 Days #14 cap 08/29/20 Fluconazole [Diflucan] 150 mg PO ONCE #1 tab 08/29/20 Albuterol Nebulized [Ventolin 2.5 mg INHALATION Q4H PRN #75 ml 04/20/22 Nebulized] Albuterol Sulfate [Proair Hfa] 1 - 2 puff INHALATION Q4HR PRN 04/20/22 #8.5 gm Doxycycline Hyclate 100 mg PO BID 1 Days #20 tab 04/20/22 predniSONE [Deltasone] 20 mg PO BID #10 tab 04/20/22 Cephalexin [Keflex] 500 mg PO Q6HR #40 cap 09/16/23 Allergies Allergy/AdvReac Type Severity Reaction Status Date / Time ciprofloxacin Allergy Rash/Hives Verified 09/16/23 13:49 latex Allergy Rash/Hives Verified 09/16/23 13:49 Penicillins Allergy Rash/Hives Verified 09/16/23 13:49 Review of Systems ROS Statement: Those systems with pertinent positive or pertinent negative responses have been documented in the HPI. ROS Other: All systems not noted in ROS Statement are negative. Past Medical History Past Medical History: Asthma, GERD/Reflux, Hyperlipidemia, Hypertension Additional Past Medical History / Comment(s): varicose veins,incontinent of urine-has to stand over toilet/commode to empty bladder History of Any Multi-Drug Resistant Organisms: MRSA Date of last positivie culture/infection: 10-23-2012 MDRO Source:: unk Past Surgical History: Bladder Surgery, Joint Replacement, Tonsillectomy, Tubal Ligation Additional Past Surgical History / Comment(s): breast bx x2, bronchoscopy,shelley cataracts, B hip Past Anesthesia/Blood Transfusion Reactions: Motion Sickness Past Psychological History: No Psychological Hx Reported Smoking Status: Never smoker Past Alcohol Use History: None Reported Past Drug Use History: None Reported - Past Family History Mother Additional Family Medical History / Comment(s): heart problems-rheumatic fever,AlZheimer's Father Additional Family Medical History / Comment(s): AlZheimer's General Exam Limitations: no limitations Course Vital Signs 09/16/23 09/16/23 13:45 16:51 Temperature 98.3 F Pulse Rate 94 67 Respiratory 18 18 Rate Blood Pressure 124/78 147/75 O2 Sat by Pulse 99 97 Oximetry Medical Decision Making - Medical Decision Making Was pt. sent in by a medical professional or institution (, PA, COUNT TEAM CLERK, urgent care, hospital, or retirement...) When possible be specific @ -No Did you speak to anyone other than the patient for history (EMS, parent, family, police, friend...)? What history was obtained from this source @ - at bedside providing some HPI Did you review nursing and triage notes (agree or disagree)? Why? @ -I reviewed and agree with nursing and triage notes Were old charts reviewed (outside hosp., previous admission, EMS record, old EKG, old radiological studies, urgent care reports/EKG's, retirement records)? Report findings @ -No old charts were reviewed Differential Diagnosis (chest pain, altered mental status, abdominal pain women, abdominal pain men, vaginal bleeding, weakness, fever, dyspnea, syncope, h eadache, dizziness, GI bleed, back pain, seizure, CVA, palpatations, mental health, musculoskeletal)? @ -Differential Syncope: Valvular disease, hypertrophic cardiomyopathy, pulmonary embolism, tamponade, tachycardia, bradycardia, MT, hypovolemia, hemorrhage, dissection, anemia, intracranial hemorrhage, seizure, hypoglycemia, carbon monoxide poisoning, this is not meant to be an all-inclusive list. EKG interpreted by me (3pts min.). @ -As above X-rays interpreted by me (1pt min.). @ -Chest x-ray interpreted by me shows no acute cardiopulmonary process. X-ray of left ankle and right shoulder negative for acute osseous process. CT interpreted by me (1pt min.). @ -None done U/S interpreted by me (1pt. min.). @ -None done What testing was considered but not performed or refused? (CT, X-rays, U/S, labs)? Why? @ -None What meds were considered but not given or refused? Why? @ -None Did you discuss the management of the patient with other professionals (professionals i.e. , PA, COUNT TEAM CLERK, lab, RT, psych nurse, family welfare social work professor, chainstitch seat joiner, teacher, foreign service officer, case management social worker)? Give summary @ -No Was smoking cessation discussed for >3mins.? @ -No Was critical care preformed (if so, how long)? @ -No Were there social determinants of health that impacted care today? How? (Homelessness, low income, unemployed, alcoholism, drug addiction, transportation, low edu. Level, literacy, decrease access to med. care, [facility], rehab)? @ -No Was there de-escalation of care discussed even if they declined (Discuss DNR or withdrawal of care, Hospice)? DNR status @ -No What co-morbidities impacted this encounter? (DM, HTN, Smoking, COPD, CAD, Cancer, CVA, ARF, Chemo, Hep., AIDS, mental health diagnosis, sleep apnea, morbid obesity)? @ -Hypertension, hyperlipidemia, asthma, GERD Was patient admitted / discharged? Hospital course, mention meds given and route, prescriptions, significant lab abnormalities, going to OR and other pertinent info. @ -Discharge. Patient is a 77-year-old female presented to ER with chief complaint of syncopal episode. History and physical exam were completed. Vitals stable. Patient in no signs of acute distress. Nontoxic-appearing. Lung sounds clear to auscultation bilaterally. Labs obtained in the ER significant for white blood cell count of 15.4 lactic 2.3 for which patient received 1 L of IV fluids. Urine analysis positive for UTI with positive nitrites. Influenza A and COVID-positive. RSV negative. Chest x-ray interpreted by me shows no acute cardiopulmonary process. X-ray of left ankle and right shoulder negative for acute osseous abnormality. EKG showed sinus rhythm with no acute evidence of infarct or ischemia. Results discussed with patient and , at bedside. All questions answered. Admission was considered due to multiple infectious processes. Patient refused admission and stated she would like to go home. Patient will be prescribed Keflex for UTI. She did receive the first dose in the ER. Patient will be discharged in stable condition with follow-up to PCP. Strict return parameters were discussed. Patient expressed understanding and agreement with care plan. Undiagnosed new problem with uncertain prognosis? @ -No Drug Therapy requiring intensive monitoring for toxicity (Heparin, Nitro, Insulin, Cardizem)? @ -No Were any procedures done? @ -No Diagnosis/symptom? @ -Influenza/COVID/viral sinusitis/UTI/leukocytosis/lactic acidosis Acute, or Chronic, or Acute on Chronic? @ -Acute Uncomplicated (without systemic symptoms) or Complicated (systemic symptoms)? @ -Complicated Side effects of treatment? @ -No Exacerbation, Progression, or Severe Exacerbation? @ -No Poses a threat to life or bodily function? How? (Chest pain, USA, MT, pneumonia, PE, COPD, DKA, ARF, appy, cholecystitis, CVA, Diverticulitis, Homicidal, Suicidal, threat to staff... and all critical care pts) @ -No - Lab Data Result diagrams: 09/16/23 14:48 09/16/23 14:48 Lab Results 09/16/23 09/16/23 09/16/23 Range/Units 14:48 14:48 14:48 WBC 15.4 H (3.8-10.6) k/uL RBC 4.59 (3.80-5.40) m/uL Hgb 14.7 (11.4-16.0) gm/dL Hct 43.7 (34.0-46.0) % MCV 95.2 (80.0-100.0) fL MCH 31.9 (25.0-35.0) pg MCHC 33.6 (31.0-37.0) g/dL RDW 12.7 (11.5-15.5) % Plt Count 149 L (150-450) k/uL MPV 10.9 PT 10.7 (10.0-12.5) sec INR 1.0 (<1.2) APTT 25.7 (22.0-30.0) sec Sodium 140 (137-145) mmol/L Potassium 4.0 (3.5-5.1) mmol/L Chloride 105 (98-107) mmol/L Carbon Dioxide 22 (22-30) mmol/L Anion Gap 13 mmol/L BUN 17 (7-17) mg/dL Creatinine 0.71 (0.52-1.04) mg/dL Est GFR (CKD-EPI)AfAm >90 (>60 ml/min/1.73 sqM) Est GFR (CKD-EPI)NonAf 83 (>60 ml/min/1.73 sqM) Glucose 111 H (74-99) mg/dL Lactic Ac Sepsis Rflx Plasma Lactic Acid F[place]ad (0.7-2.0) mmol/L Calcium 9.6 (8.4-10.2) mg/dL Total Bilirubin 1.4 H (0.2-1.3) mg/dL AST 46 H (14-36) U/L ALT 27 (4-34) U/L Alkaline Phosphatase 84 (38-126) U/L Troponin I (0.000-0.034) ng/mL Total Protein 7.6 (6.3-8.2) g/dL Albumin 4.6 (3.5-5.0) g/dL Urine Color Urine Appearance (Clear) Urine pH (5.0-8.0) Ur Specific [place] (1.001-1.035) Urine Protein (Negative) Urine Glucose (UA) (Negative) Urine Ketones (Negative) Urine Blood (Negative) Urine Nitrite (Negative) Urine Bilirubin (Negative) Urine Urobilinogen (<2.0) mg/dL Ur Leukocyte Esterase (Negative) Urine RBC (0-5) /hpf Urine WBC (0-5) /hpf Ur Squamous Epith Cells (0-4) /hpf Urine Bacteria (None) /hpf Urine Mucus (None) /hpf Influenza Type A (PCR) (Not Detectd) Influenza Type B (PCR) (Not Detectd) RSV (PCR) (Not Detectd) SARS-CoV-2 (PCR) (Not Detectd) 09/16/23 09/16/23 09/16/23 Range/Units 14:48 14:48 14:48 WBC (3.8-10.6) k/uL RBC (3.80-5.40) m/uL Hgb (11.4-16.0) gm/dL Hct (34.0-46.0) % MCV (80.0-100.0) fL MCH (25.0-35.0) pg MCHC (31.0-37.0) g/dL RDW (11.5-15.5) % Plt Count (150-450) k/uL MPV PT (10.0-12.5) sec INR (<1.2) APTT (22.0-30.0) sec Sodium (137-145) mmol/L Potassium (3.5-5.1) mmol/L Chloride (98-107) mmol/L Carbon Dioxide (22-30) mmol/L Anion Gap mmol/L BUN (7-17) mg/dL Creatinine (0.52-1.04) mg/dL Est GFR (CKD-EPI)AfAm (>60 ml/min/1.73 sqM) Est GFR (CKD-EPI)NonAf (>60 ml/min/1.73 sqM) Glucose (74-99) mg/dL Lactic Ac Sepsis Rflx Plasma Lactic Acid [place]ad (0.7-2.0) mmol/L Calcium (8.4-10.2) mg/dL Total Bilirubin (0.2-1.3) mg/dL AST (14-36) U/L ALT (4-34) U/L Alkaline Phosphatase (38-126) U/L Troponin I <0.012 (0.000-0.034) ng/mL Total Protein (6.3-8.2) g/dL Albumin (3.5-5.0) g/dL Urine Color Yellow Urine Appearance Cloudy H (Clear) Urine pH 7.0 (5.0-8.0) Ur Specific [place] 1.018 (1.001-1.035) Urine Protein 1+ H (Negative) Urine Glucose (UA) Negative (Negative) Urine Ketones 1+ H (Negative) Urine Blood Trace H (Negative) Urine Nitrite Positive H (Negative) Urine Bilirubin Negative (Negative) Urine Urobilinogen <2.0 (<2.0) mg/dL Ur Leukocyte Esterase Large H (Negative) Urine RBC 5 (0-5) /hpf Urine WBC 125 H (0-5) /hpf Ur Squamous Epith Cells 1 (0-4) /hpf Urine Bacteria Many H (None) /hpf Urine Mucus Rare H (None) /hpf Influenza Type A (PCR) Detected A (Not Detectd) Influenza Type B (PCR) Not Detected (Not Detectd) RSV (PCR) Not Detected (Not Detectd) SARS-CoV-2 (PCR) Detected A (Not Detectd) 09/16/23 09/16/23 Range/Units 14:48 15:33 WBC (3.8-10.6) k/uL RBC (3.80-5.40) m/uL Hgb (11.4-16.0) gm/dL Hct (34.0-46.0) % MCV (80.0-100.0) fL MCH (25.0-35.0) pg MCHC (31.0-37.0) g/dL RDW (11.5-15.5) % Plt Count (150-450) k/uL MPV PT (10.0-12.5) sec INR (<1.2) APTT (22.0-30.0) sec Sodium (137-145) mmol/L Potassium (3.5-5.1) mmol/L Chloride (98-107) mmol/L Carbon Dioxide (22-30) mmol/L Anion Gap mmol/L BUN (7-17) mg/dL Creatinine (0.52-1.04) mg/dL Est GFR (CKD-EPI)AfAm (>60 ml/min/1.73 sqM) Est GFR (CKD-EPI)NonAf (>60 ml/min/1.73 sqM) Glucose (74-99) mg/dL Lactic Ac Sepsis Rflx Y Plasma Lactic Acid [place] 2.3 H* (0.7-2.0) mmol/L Calcium (8.4-10.2) mg/dL Total Bilirubin (0.2-1.3) mg/dL AST (14-36) U/L ALT (4-34) U/L Alkaline Phosphatase (38-126) U/L Troponin I (0.000-0.034) ng/mL Total Protein (6.3-8.2) g/dL Albumin (3.5-5.0) g/dL Urine Color Urine Appearance (Clear) Urine pH (5.0-8.0) Ur Specific [place] (1.001-1.035) Urine Protein (Negative) Urine Glucose (UA) (Negative) Urine Ketones (Negative) Urine Blood (Negative) Urine Nitrite (Negative) Urine Bilirubin (Negative) Urine Urobilinogen (<2.0) mg/dL Ur Leukocyte Esterase (Negative) Urine RBC (0-5) /hpf Urine WBC (0-5) /hpf Ur Squamous Epith Cells (0-4) /hpf Urine Bacteria (None) /hpf Urine Mucus (None) /hpf Influenza Type A (PCR) (Not Detectd) Influenza Type B (PCR) (Not Detectd) RSV (PCR) (Not Detectd) SARS-CoV-2 (PCR) (Not Detectd) - EKG Data -: EKG Interpreted by Me EKG Comments: EKG taken at 13: 53 shows a sinus rhythm. No acute ST segment or T wave abnormalities. Ventricular rate 76, IA interval 132, QRS duration 103, QT/QTc 368/398. - Radiology Data Radiology results: report reviewed, image reviewed Disposition Clinical Impression: COVID-19, Influenza A, Acute viral sinusitis, Urinary tract infection, Leukocytosis Disposition: HOME SELF-CARE Condition: Good Instructions (If sedation given, give patient instructions): Urinary Tract Infection in Women (ED), Influenza (DC) Additional Instructions: Please complete full course of Keflex. You may use [id number] Tylenol and Motrin for fever and symptom control. Follow-up with PCP in the next 1 to 2 days. Return to the ER for any new or worsening symptoms. Prescriptions: Cephalexin [Keflex] 500 mg PO Q6HR #40 cap Is patient prescribed a controlled substance at d/c from ED?: No Referrals: Juni Goldberg MD [Primary Care Provider] - 1-2 days Time of Disposition: 16:21
[2023-09-16 14:42] VITALS: RESP 18; TEMP 98.3
--- NOTE | 2023-09-16 14:52 | XR ---
EXAMINATION TYPE: XR chest 2V DATE OF EXAM: 09/16/2023 COMPARISON: 04/20/2022 HISTORY: 77-year-old female with syncope TECHNIQUE: PA and lateral views FINDINGS: Heart normal size. Atherosclerotic arch calcifications. Hyperinflation. No consolidation or pleural e ffusion. IMPRESSION: Hyperinflation related to depth of inspiration or underlying emphysema. No acute process seen.
[2023-09-16] MEDS: SODIUM CHLORIDE 0.9% 1,000 ML IV STA (14:55)
--- NOTE | 2023-09-16 14:55 | XR ---
EXAMINATION TYPE: XR shoulder complete 3 views RT, XR ankle complete 3 views LT DATE OF EXAM: 09/16/2023 Comparison: None Clinical History: 77-year-old female with pain after fall Findings: Right shoulder: Moderate degenerative joint space narrowing and marginal spurring and capsular hypertrophy at the acr omioclavicular joint. Subacromial space is preserved. No acute fracture, subluxation, or dislocation. Left ankle: Ankle mortise is congruent with preservation of the distal tibiofibular overlap. Moderate tibiotalar joint effusion or synovitis anteriorly. Some scattered vascular calcifications are noted. Some degene rative spurring inferior aspect of the medial malleolus. Talar dome is intact. Small plantar heel spu r. Small delineation to the Achilles tendon. Subtalar joint is aligned. Impression: 1. Right shoulder: Moderate AC joint OA. No acute osseous abnormality seen. 2. Left ankle: There appears to be a moderate ankle joint effusion or synovitis. Small plantar heel s pur. No acute osseous abnormality seen.
[2023-09-16 15:21] LABS: HCT 43.7 % (34.0-46.0); HGB 14.7 gm/dL (11.4-16.0); MCH 31.9 pg (25.0-35.0); MCHC 33.6 g/dL (31.0-37.0); MCV 95.2 fL (80.0-100.0); Mean Platelet Volume 10.9; Platelet Count 149 k/uL (150-450); RBC 4.59 m/uL (3.80-5.40); RDW 12.7 % (11.5-15.5); WBC 15.4 k/uL (3.8-10.6)
[2023-09-16 15:29] LABS: ALT 27 U/L (4-34); African American GFR (CKD) >90 (>60 ml/min/1.73 sqM); Blood Urea Nitrogen 17 mg/dL (7-17); Calcium 9.6 mg/dL (8.4-10.2); Carbon Dioxide 22 mmol/L (22-30); Glucose 111 mg/dL (74-99); Non-African American GFR(CKD) 83 (>60 ml/min/1.73 sqM); Total Bilirubin 1.4 mg/dL (0.2-1.3)
[2023-09-16 15:38] LABS: Partial Thromboplastin Time 25.7 sec (22.0-30.0); Prothrombin Time 10.7 sec (10.0-12.5)
[2023-09-16 15:44] LABS: Anion Gap 13 mmol/L; Chloride 105 mmol/L (98-107); Sodium 140 mmol/L (137-145)
[2023-09-16 16:00] LABS: AST 46 U/L (14-36); Albumin 4.6 g/dL (3.5-5.0); Alkaline Phosphatase 84 U/L (38-126); Total Protein 7.6 g/dL (6.3-8.2)
[2023-09-16 16:05] LABS: Appearance,Urine Cloudy (Clear); Bacteria,Urine Many /hpf; Bilirubin,Urine Negative (Negative); Blood,Urine Trace (Negative); Color,Urine Yellow; Glucose,Urine (UA) Negative (Negative); Ketones,Urine 1+ (Negative); Leukocyte Esterase,Urine Large (Negative); Mucus,Urine Rare /hpf; Nitrite,Urine Positive (Negative); Protein,Urine 1+ (Negative); RBC,Urine 5 /hpf (0-5); Specific Gravity,Urine 1.018 (1.001-1.035); Squamous Epithelial Cell,Urine 1 /hpf (0-4); Urobilinogen,Urine <2.0 mg/dL (<2.0); WBC,Urine 125 /hpf (0-5)
[2023-09-16] MEDS: CEPHALEXIN 500 MG CAP PO STA (16:35)
[2023-09-16 17:10] VITALS: BP 147/75; PULSE 67
== END 2023-09-16 16:52 | disposition home or self-care (01) ==
LOC: EC 13:26
DX: U07.1 COVID-19 (principal); J10.1 Influenza due to other identified influenza virus with other respiratory manifestations; J01.90 Acute sinusitis, unspecified; N39.0 Urinary tract infection, site not specified; E87.20 Acidosis, unspecified; M25.572 Pain in left ankle and joints of left foot; M25.511 Pain in right shoulder; B96.20 Unspecified Escherichia coli [E. coli] as the cause of diseases classified elsewhere; I10 Essential (primary) hypertension; J45.909 Unspecified asthma, uncomplicated; E78.5 Hyperlipidemia, unspecified; K21.9 Gastro-esophageal reflux disease without esophagitis; Z20.822 Contact with and (suspected) exposure to COVID-19; Z79.899 Other long term (current) drug therapy; Z88.0 Allergy status to penicillin; Z88.1 Allergy status to other antibiotic agents; Z91.040 Latex allergy status; W18.39XA Other fall on same level, initial encounter
CPT/HCPCS: 36415; 71046; 80053; 81001; 83605; 84484; 85027; 85610; 85730; 87077; 87086; 87186; 87636; 93005; 96360; 99284

== ENCOUNTER → 2023-09-29 | Outpatient (CLI) | payer MEDICARE ==
--- NOTE | 2023-09-29 10:35 | XR ---
EXAMINATION TYPE: XR chest 2V DATE OF EXAM: 09/29/2023 COMPARISON: 09/16/2023 HISTORY: Shortness of breath TECHNIQUE: Frontal and lateral views of the chest are obtained. FINDINGS: Scattered senescent parenchymal changes noted. Hyperinflation compatible with COPD. No evidence for infiltrate. No evidence for atelectasis. Heart size is stable. Mediastinal structures are stable and grossly unremarkable. No evidence for hilar prominence. Degenerative changes dorsal spine. IMPRESSION: 1. No evidence for acute pulmonary disease.
== END | disposition home or self-care (01) ==
LOC: RADXRMAIN 10:12
PROVIDERS: ATTEND Internal Medicine Geriatric Medicine
DX: R05.9 Cough, unspecified (principal); R06.02 Shortness of breath
CPT/HCPCS: 71046

== ENCOUNTER → 2023-10-28 | Outpatient (CLI) | payer MEDICARE ==
--- NOTE | 2023-10-28 16:06 | MR ---
EXAMINATION TYPE: MR brain wo/w con DATE OF EXAM: 10/28/2023 COMPARISON: 12/02/2022 HISTORY: Stroke, Fainting episode CONTRAST: Performed utilizing 6.5 mL intravenous Gadavist gadolinium contrast. TECHNIQUE: Multiplanar, multiecho imaging on a 3.0 Jing magnet is performed through the brain. Stud y is performed within 24 hours of arrival to the hospital. The craniovertebral junction is normal. The pituitary is normal. Diffusion-weighted imaging is performed. No abnormal hyperintensity is present to suggest an acute i ntracranial infarct or acute ischemic change. There is patchy to confluent periventricular white matter ischemic type changes. Additional punctate subcortical white matter changes are within the centrum semiovale bilaterally. Findings are nonspecif ic but present previously. Differential diagnosis could include multiple sclerosis, chronic white mat ter ischemic type changes, vasculitis, Lyme disease. Ventricles and sulci are common and for the patient age. No suspicious enhancement is evident. IMPRESSION: 1. Patchy to confluent periventricular and deep white matter changes with atrophy. Findings appear ch ronic and stable from comparison. 2. No acute intracranial process.
== END | disposition home or self-care (01) ==
LOC: RADMRIMAIN 07:28
PROVIDERS: ATTEND Internal Medicine Geriatric Medicine
DX: G93.89 Other specified disorders of brain (principal); G31.9 Degenerative disease of nervous system, unspecified; G45.9 Transient cerebral ischemic attack, unspecified; R55 Syncope and collapse
CPT/HCPCS: 70553; A9585

== ENCOUNTER → 2023-11-29 | Outpatient (CLI) | payer MEDICARE ==
--- NOTE | 2023-11-29 16:13 | BD ---
EXAMINATION TYPE: Axial Bone Density DATE OF EXAM: 11/29/2023 CLINICAL HISTORY: 77 years old Female. ICD-10 CODE: M81.0 OSTEOOIRISIS Height: 65" Weight: 142lbs FRAX RISK QUESTIONS: Alcohol (3 or more units per day): No Family History (Parent hip fracture): No Glucocorticoids (More than 3mos): No, but has taken two dose packs in the last 6 months (Ex: prednisone, prednisolone, methylprednisolone, dexamethasone, and hydrocortisone). History of Fracture in Adulthood: Yes Secondary Osteoporosis: 1. Type 1 Diabetes: No 2. Hyperthyroidism: No 3. Menopause before 45: Yes 4. Malnutrition: No 5. Chronic liver disease: No Rheumatoid Arthritis: No Current Tobacco Use: No RISK FACTORS HISTORY OF: Hip Fracture (Right/Left): No Spine Fracture: No History of Wrist Fracture: No Surgery to Spine/Hip(right/left)/Wrist (right/left): Bilateral hip replacements MEDICATIONS: Thyroid Medications: No Osteoporosis Medications: No EXAM MEASUREMENTS: Bone mineral densitometry was performed using the [employer] System. Bone mineral density as measured about the Lumbar spine is: ----- L1-L4(G/cm2): 1.251 T Score Values are as follows: ----- L1: 0.3 ----- L2: 0.6 ----- L3: 0.9 ----- L4: 0.4 ----- L1-L4: 0.6 Z Score Values are as follows: ----- L1: 2.1 ----- L2: 2.4 ----- L3: 2.7 ----- L4: 2.2 ----- L1-L4: 2.4 Bone mineral density has: decreased -0.6% since study of: 06/08/2017 Bone mineral density about the L Wrist (g/cm2): 0.423 T Score values are as follows: -----Dist. R+U: -3.9 -----Prox. R+U: -3.3 -----Radius total: -4.2 Z Score values are as follows: -----Dist. R+U: -1.4 -----Prox. R+U: -0.9 -----Radius total: -1.7 Baseline for Lt forearm FRAX%s: N/A IMPRESSION: Osteoporosis (T Score less than -2.5). There is increased fracture risk and therapy is usually indicated based on age. Re-Screen 1-2 years. NOTE: T-SCORE=SD OF THE YOUNG ADULT MEAN.
--- NOTE | 2023-12-01 08:40 | MM ---
Reason for Exam: Screening (asymptomatic). Last mammogram was performed 1 year(s) and 2 month(s) ago. Patient History: Menarche at age 14. First Full-Term at age 21. Hysterectomy at age 52. Postmenopausal. Other cancer. Estrogen, starting at age 56 for 4 years, 6 months. 06/20/2006, Core Biopsy on the Right side. 05/29/2007, Benign Cyst Aspiration on the left side. 05/29/2007, Benign Core Biopsy on the right side. Risk Values: Maria Esther 5 year model risk: 2.4%. NCI Lifetime model risk: 4.8%. Prior Study Comparison: 09/12/2020 Bilateral Screening Mammogram, [facility]. 10/20/2021 Bilateral Screening Mammogram, [facility]. 10/21/2022 Bilateral MG 3D screening mammo w/cad, [facility]. Tissue Density: The breasts are heterogeneously dense, which may obscure small masses. Findings: Analyzed By CAD. There is no suspicious group of microcalcifications or new suspicious mass in either breast. Chronic nodularity or small benign appearing lymph nodes stable bilaterally. Benign-appearing calcifications stable. Suggestion of a surgical clip in the right breast. Overall Assessment: Benign, BI-RAD 2 Management: Screening Mammogram of both breasts in 1 year. . Patient should continue monthly self-breast exams. A clinical breast exam by your physician is recommended on an annual basis. This exam should not preclude additional follow-up of suspicious palpable abnormalities. Note on Maria Esther scores and lifetime risk: 1. A Maria Esther score greater than 3% is considered moderate risk. If this is the case, consider specialist referral to assess eligibility for a risk reducing agent. 2. If overall lifetime risk for the development of breast cancer is 20% or higher, the patient may qualify for future screening with alternating mammogram and breast MRI. Electronically signed and approved by: Juni Mishra M.D. Radiologis
== END | disposition home or self-care (01) ==
LOC: RADMAMWWP 10:59
PROVIDERS: ATTEND Internal Medicine Geriatric Medicine
DX: Z12.31 Encounter for screening mammogram for malignant neoplasm of breast (principal); M81.0 Age-related osteoporosis without current pathological fracture; Z78.0 Asymptomatic menopausal state
CPT/HCPCS: 77063; 77067; 77080

== ENCOUNTER 2024-10-11 13:25 | Emergency (ER) | payer MEDICARE ==
--- NOTE | 2024-10-11 14:48 | ED ---
SOB HPI - General Chief Complaint: Anxiety Stated Complaint: Anxiety Time Seen by Provider: 10/11/24 13:31 Source: patient, EMS, RN notes reviewed, old records reviewed Mode of arrival: EMS Limitations: no limitations - History of Present Illness Initial Comments: This is a 78-year-old female to the ER for evaluation today. This patient presents today for evaluation regards to shortness of breath with cough and congestion. Patient has no fever. No recent travels or sick contacts, states she was doing some work today doing some moving doing some movement and cleaning rugs in her house when she no acute became severely short of breath and cannot catch her breath despite breathing treatments at home and presents to the ER with increased work of breathing increased rate of breathing and having finger and finger hand numbness and tingling MD Complaint: shortness of breath, cough, "asthma attack", anxiety -: hour(s) Severity: moderate Severity scale (1-10): 6 Consistency: constant Improves With: nothing Worsens With: exertion Known History Of: COPD, asthma Context: recent URI, anxiety, recent illness Associated Symptoms: denies other symptoms - Related Data Home Medications Medication Instructions Recorded Confirmed Acetaminophen Tab [Tylenol Tab] 500 mg PO HS PRN 09/14/16 04/09/19 Atorvastatin [Lipitor] 10 mg PO HS 09/14/16 04/09/19 Beclomethasone Dipropionate [Qvar 1 puff INHALATION RT-BID 09/14/16 04/09/19 80 mcg] Calcium Carb/Vitamin D3/Vit K1 1 tab PO DAILY 09/14/16 04/09/19 [Viactiv Soft Chew Tablet] Hailey 500 mg PO DAILY 09/14/16 04/09/19 Multivitamins, Thera [Multivitamin] 1 tab PO DAILY 09/14/16 04/09/19 Turmeric Root Extract [Turmeric] 500 mg PO DAILY 09/14/16 04/09/19 B Complex-Vit C-Vit E-Zinc [Z-Bec] 1 tab PO DAILY 09/20/16 04/09/19 Biotin 10,000 mcg PO DAILY 04/03/19 04/09/19 Isosorbide Mononitrate [Isosorbide 30 mg PO DAILY 04/03/19 04/09/19 Mononitrate ER] Magnesium Oxide [Mag-Ox] 250 mg PO DAILY 04/03/19 04/09/19 Olmesartan [Benicar] 10 mg PO DAILY 04/03/19 04/09/19 Soolantra 1 applic TOPICAL Q48H 04/03/19 04/09/19 Triamcinolone 0.1% Cream [Kenalog 1 applic TOPICAL Q48H 04/03/19 04/09/19 0.1% Cream] Previous Rx's Medication Instructions Recorded Aspirin [Adult Low Dose Aspirin EC] 81 mg PO BID #60 tablet.dr 04/10/19 Docusate [Colace] 100 mg PO DAILY #30 capsule 04/10/19 HYDROcodone/APAP 7.5-325MG [[place] 1 - 2 each PO Q6HR PRN #56 tab 04/10/19 7.5-325] Cephalexin [Keflex] 500 mg PO Q6HR #40 cap 05/09/19 Cephalexin [Keflex] 500 mg PO BID 7 Days #14 cap 08/29/20 Fluconazole [Diflucan] 150 mg PO ONCE #1 tab 08/29/20 Albuterol Nebulized [Ventolin 2.5 mg INHALATION Q4H PRN #75 ml 04/20/22 Nebulized] Albuterol Sulfate [Proair Hfa] 1 - 2 puff INHALATION Q4HR PRN 04/20/22 #8.5 gm Doxycycline Hyclate 100 mg PO BID 1 Days #20 tab 04/20/22 predniSONE [Deltasone] 20 mg PO BID #10 tab 04/20/22 Cephalexin [Keflex] 500 mg PO Q6HR #40 cap 09/16/23 Allergies Allergy/AdvReac Type Severity Reaction Status Date / Time ciprofloxacin Allergy Rash/Hives Verified 09/16/23 13:49 latex Allergy Rash/Hives Verified 09/16/23 13:49 Penicillins Allergy Rash/Hives Verified 09/16/23 13:49 Review of Systems ROS Statement: Those systems with pertinent positive or pertinent negative responses have been documented in the HPI. ROS Other: All systems not noted in ROS Statement are negative. Past Medical History Past Medical History: Asthma, GERD/Reflux, Hyperlipidemia, Hypertension Additional Past Medical History / Comment(s): varicose veins,incontinent of urine-has to stand over toilet/commode to empty bladder History of Any Multi-Drug Resistant Organisms: MRSA Date of last positivie culture/infection: 10-23-2012 MDRO Source:: unk Past Surgical History: Bladder Surgery, Joint Replacement, Tonsillectomy, Tubal Ligation Additional Past Surgical History / Comment(s): breast bx x2, bronchoscopy,shelley cataracts, B hip Past Anesthesia/Blood Transfusion Reactions: Motion Sickness Past Psychological History: No Psychological Hx Reported Smoking Status: Never smoker Past Alcohol Use History: None Reported Past Drug Use History: None Reported - Past Family History Mother Additional Family Medical History / Comment(s): heart problems-rheumatic fever,AlZheimer's Father Additional Family Medical History / Comment(s): AlZheimer's General Exam Limitations: no limitations General appearance: alert, anxious Head exam: Present: atraumatic, normocephalic, normal inspection Eye exam: Present: normal appearance, PERRL, EOMI. Absent: scleral icterus, conjunctival injection, periorbital swelling ENT exam: Present: normal exam, mucous membranes moist Neck exam: Present: normal inspection. Absent: tenderness, meningismus, lymphadenopathy Respiratory exam: Present: respiratory distress, wheezes, accessory muscle use, decreased breath sounds, prolonged expiratory. Absent: rales, rhonchi, stridor Cardiovascular Exam: Present: regular rate, normal rhythm, normal heart sounds. Absent: systolic murmur, diastolic murmur, rubs, gallop, clicks GI/Abdominal exam: Present: soft, normal bowel sounds. Absent: distended, tenderness, guarding, rebound, rigid Extremities exam: Present: normal inspection, full ROM, normal capillary refill. Absent: tenderness, pedal edema, joint swelling, calf tenderness Back exam: Present: normal inspection Neurological exam: Present: alert, oriented X3, CN II-XII intact Psychiatric exam: Present: normal affect, normal mood Skin exam: Present: warm, dry, intact, normal color. Absent: rash Course Vital Signs 10/11/24 10/11/24 10/11/24 13:27 16:08 17:30 Temperature 99 F 97.4 F L Pulse Rate 88 79 86 Respiratory 20 19 Rate Blood Pressure 171/114 131/82 O2 Sat by Pulse 100 99 Oximetry 10/11/24 10/11/24 17:37 17:46 Temperature 97.4 F L Pulse Rate 84 75 Respiratory 20 Rate Blood Pressure 146/67 O2 Sat by Pulse 97 Oximetry - Reevaluation(s) Reevaluation #1: 10/11/24 18:24 Medical records reviewed Reevaluation #2: 10/11/24 18:24 Patient symptoms improving dramatically here in the ER Reevaluation #3: 10/11/24 18:24 Patient informed of results and questions answered Reevaluation #4: Was pt. sent in by a medical professional or institution (, [facility], TIRE INSTALLER, urgent care, hospital, or assisted...) When possible be specific @ -no Did you speak to anyone other than the patient for history (EMS, parent, family, police, friend...)? What history was obtained from this source @ -no Did you review nursing and triage notes (agree or disagree)? Why? @ -agree Are old charts reviewed (outside hosp., previous admission, EMS record, old EKG, old radiological studies, urgent care reports/EKG's, assisted records)? Report findings @ -yes Differential Diagnosis (chest pain, altered mental status, abdominal pain women, abdominal pain men, vaginal bleeding, weakness, fever, dyspnea, syncope, headache, dizziness, GI bleed, back pain, seizure, CVA, palpatations, mental health, musculoskeletal)? @ -prior EKG interpreted by me (3pts min.). @ -yes X-rays interpreted by me (1pt min.). @ -yes negative for acute disease CT interpreted by me (1pt min.). @ -no U/S interpreted by me (1pt. min.). @ -no What testing was considered but not performed or refused? (CT, X-rays, U/S, l abs)? Why? @ -none What meds were considered but not given or refused? Why? @ -none Did you discuss the management of the patient with other professionals (professionals i.e. ALEXANDRA Leblanc, TIRE INSTALLER, lab, RT, psych nurse, social security specialist, passenger rate clerk, teacher, officer captain, outpatient case manager)? Give summary @ -no Was smoking cessation discussed for >3mins.? @ -no Was critical care preformed (if so, how long)? @ -no Were there social determinants of health that impacted care today? How? (Homelessness, low income, unemployed, alcoholism, drug addiction, transportation, low edu. Level, literacy, decrease access to med. care, senior living, rehab)? @ -none Was there de-escalation of care discussed even if they declined (Discuss DNR or withdrawal of care, Hospice)? DNR status @ -no What co-morbidities impacted this encounter? (DM, HTN, Smoking, COPD, CAD, Cancer, CVA, ARF, Chemo, Hep., AIDS, mental health diagnosis, sleep apnea, morbid obesity)? @ -none Was patient admitted / discharged? Hospital course, mention meds given and route, prescriptions, significant lab abnormalities, going to OR and other pertinent info. @ - Undiagnosed new problem with uncertain prognosis? @ -no Drug Therapy requiring intensive monitoring for toxicity (Heparin, Nitro, Insulin, Cardizem)? @ -no Were any procedures done? @ -no Diagnosis/symptom? @ - Acute, or Chronic, or Acute on Chronic? @ -Acute Uncomplicated (without systemic symptoms) or Complicated (systemic symptoms)? @ -Complicated Side effects of treatment? @ -no Exacerbation, Progression, or Severe Exacerbation? @ -exacerbation Poses a threat to life or bodily function? How? (Chest pain, USA, PR, pneumonia, PE, COPD, DKA, ARF, appy, cholecystitis, CVA, Diverticulitis, Homicidal, Suicidal, threat to staff... and all critical care pts) @ -yes Reevaluation #5: Differential Dyspnea: Coronary syndrome, arrhythmia, tamponade, asthma, COPD, pulmonary embolism, pneumonia, pneumothorax, pulmonary effusion, anaphylaxis, diabetic ketoacidosis, flailed chest, pulmonary contusion, diaphragmatic rupture, anemia, neuromuscular, this is not meant to be an all-inclusive list. Medical Decision Making - Medical Decision Making 78 female to the ER for evaluation patient presents today for evaluation regards to altered mental status presents to the ER for evaluation regards to shortness of breath dyspnea anxiety. All symptoms resolved here in the ER feels well and can be discharged home - Lab Data Result diagrams: 10/11/24 15:01 10/11/24 15:01 Lab Results 10/11/24 10/11/24 10/11/24 Range/Units 14:48 15:01 15:01 WBC 11.4 H (3.8-10.6) k/uL RBC 4.48 (3.80-5.40) m/uL Hgb 14.2 (11.4-16.0) gm/dL Hct 43.7 (34.0-46.0) % MCV 97.6 (80.0-100.0) fL MCH 31.8 (25.0-35.0) pg MCHC 32.6 (31.0-37.0) g/dL RDW 13.1 (11.5-15.5) % Plt Count 148 L (150-450) k/uL MPV 10.6 Neutrophils % 80 % Lymphocytes % 13 % Monocytes % 4 % Eosinophils % 1 % Basophils % 0 % Neutrophils # 9.1 H (1.3-7.7) k/uL Lymphocytes # 1.5 (1.0-4.8) k/uL Monocytes # 0.5 (0-1.0) k/uL Eosinophils # 0.1 (0-0.7) k/uL Basophils # 0.0 (0-0.2) k/uL Sodium 140 (137-145) mmol/L Potassium 3.7 (3.5-5.1) mmol/L Chloride 104 (98-107) mmol/L Carbon Dioxide 18 L (22-30) mmol/L Anion Gap 18 mmol/L BUN 19 H (7-17) mg/dL Creatinine 0.80 (0.52-1.04) mg/dL Est GFR (CKD-EPI)AfAm 82 (>60 ml/min/1.73 sqM) Est GFR (CKD-EPI)NonAf 72 (>60 ml/min/1.73 sqM) Glucose 96 (74-99) mg/dL Calcium 10.2 (8.4-10.2) mg/dL Phosphorus 2.1 L (2.5-4.5) mg/dL Magnesium 1.4 L (1.6-2.3) mg/dL Total Bilirubin 0.9 (0.2-1.3) mg/dL AST 30 (14-36) U/L ALT 18 (4-34) U/L Alkaline Phosphatase 83 (38-126) U/L Troponin I (0.000-0.034) ng/mL Total Protein 7.3 (6.3-8.2) g/dL Albumin 4.7 (3.5-5.0) g/dL Urine Color Colorless Urine Appearance Clear (Clear) Urine pH 8.0 (5.0-8.0) Ur Specific [place] 1.005 (1.001-1.035) Urine Protein Negative (Negative) Urine Glucose (UA) Negative (Negative) Urine Ketones Negative (Negative) Urine Blood Negative (Negative) Urine Nitrite Negative (Negative) Urine Bilirubin Negative (Negative) Urine Urobilinogen <2.0 (<2.0) mg/dL Ur Leukocyte Esterase Negative (Negative) 10/11/24 Range/Units 15:01 WBC (3.8-10.6) k/uL RBC (3.80-5.40) m/uL Hgb (11.4-16.0) gm/dL Hct (34.0-46.0) % MCV (80.0-100.0) fL MCH (25.0-35.0) pg MCHC (31.0-37.0) g/dL RDW (11.5-15.5) % Plt Count (150-450) k/uL MPV Neutrophils % % Lymphocytes % % Monocytes % % Eosinophils % % Basophils % % Neutrophils # (1.3-7.7) k/uL Lymphocytes # (1.0-4.8) k/uL Monocytes # (0-1.0) k/uL Eosinophils # (0-0.7) k/uL Basophils # (0-0.2) k/uL Sodium (137-145) mmol/L Potassium (3.5-5.1) mmol/L Chloride (98-107) mmol/L Carbon Dioxide (22-30) mmol/L Anion Gap mmol/L BUN (7-17) mg/dL Creatinine (0.52-1.04) mg/dL Est GFR (CKD-EPI)AfAm (>60 ml/min/1.73 sqM) Est GFR (CKD-EPI)NonAf (>60 ml/min/1.73 sqM) Glucose (74-99) mg/dL Calcium (8.4-10.2) mg/dL Phosphorus (2.5-4.5) mg/dL Magnesium (1.6-2.3) mg/dL Total Bilirubin (0.2-1.3) mg/dL AST (14-36) U/L ALT (4-34) U/L Alkaline Phosphatase (38-126) U/L Troponin I <0.012 (0.000-0.034) ng/mL Total Protein (6.3-8.2) g/dL Albumin (3.5-5.0) g/dL Urine Color Urine Appearance (Clear) Urine pH (5.0-8.0) Ur Specific [place] (1.001-1.035) Urine Protein (Negative) Urine Glucose (UA) (Negative) Urine Ketones (Negative) Urine Blood (Negative) Urine Nitrite (Negative) Urine Bilirubin (Negative) Urine Urobilinogen (<2.0) mg/dL Ur Leukocyte Esterase (Negative) - EKG Data -: EKG Interpreted by Me (EKG is sinus 75 MT 141 QRS 109 QTc 413) - Radiology Data Radiology results: report reviewed (Chest x-ray is negative for acute disease), image reviewed Disposition Clinical Impression: Dyspnea, Dehydration, Asthma attack Disposition: HOME SELF-CARE Condition: Good Instructions (If sedation given, give patient instructions): Asthma (ED), Dehydration (ED), Dyspnea (ED) Is patient prescribed a controlled substance at d/c from ED?: No Referrals: Juni Goldberg MD [Primary Care Provider] - 1-2 days Time of Disposition: 16:05
[2024-10-11 14:56] LABS: Appearance,Urine Clear (Clear); Bilirubin,Urine Negative (Negative); Blood,Urine Negative (Negative); Color,Urine Colorless; Glucose,Urine (UA) Negative (Negative); Ketones,Urine Negative (Negative); Leukocyte Esterase,Urine Negative (Negative); Nitrite,Urine Negative (Negative); Protein,Urine Negative (Negative); Specific Gravity,Urine 1.005 (1.001-1.035); Urobilinogen,Urine <2.0 mg/dL (<2.0)
[2024-10-11 15:08] LABS: Basophils % (A) 0 %; Eosinophils # (A) 0.1 k/uL (0-0.7); Eosinophils % (A) 1 %; HCT 43.7 % (34.0-46.0); HGB 14.2 gm/dL (11.4-16.0); Lymphocytes # (A) 1.5 k/uL (1.0-4.8); Lymphocytes % (A) 13 %; MCH 31.8 pg (25.0-35.0); MCHC 32.6 g/dL (31.0-37.0); MCV 97.6 fL (80.0-100.0); Mean Platelet Volume 10.6; Monocytes # (A) 0.5 k/uL (0-1.0); Monocytes % (A) 4 %; Neutrophils # (A) 9.1 k/uL (1.3-7.7); Neutrophils % (A) 80 %; Platelet Count 148 k/uL (150-450); RBC 4.48 m/uL (3.80-5.40); RDW 13.1 % (11.5-15.5); WBC 11.4 k/uL (3.8-10.6)
[2024-10-11 15:27] LABS: ALT 18 U/L (4-34); AST 30 U/L (14-36); African American GFR (CKD) 82 (>60 ml/min/1.73 sqM); Albumin 4.7 g/dL (3.5-5.0); Alkaline Phosphatase 83 U/L (38-126); Anion Gap 18 mmol/L; Blood Urea Nitrogen 19 mg/dL (7-17); Calcium 10.2 mg/dL (8.4-10.2); Carbon Dioxide 18 mmol/L (22-30); Chloride 104 mmol/L (98-107); Glucose 96 mg/dL (74-99); Magnesium 1.4 mg/dL (1.6-2.3); Non-African American GFR(CKD) 72 (>60 ml/min/1.73 sqM); Phosphorus 2.1 mg/dL (2.5-4.5); Potassium 3.7 mmol/L (3.5-5.1); Sodium 140 mmol/L (137-145); Total Bilirubin 0.9 mg/dL (0.2-1.3); Total Protein 7.3 g/dL (6.3-8.2)
--- NOTE | 2024-10-11 15:27 | XR ---
EXAMINATION TYPE: XR chest 1V portable DATE OF EXAM: 10/11/2024 3:05 PM COMPARISON: Chest radiographs from 09/29/2023 CLINICAL INDICATION: Female, 78 years old with history of sob; TECHNIQUE: XR chest 1V portable Frontal view of the chest. FINDINGS: Lungs/Pleura: There is no evidence of pleural effusion, focal consolidation, or pneumothorax. Pulmonary vascularity: Unremarkable. Heart/mediastinum: Cardiomediastinal silhouette is unremarkable. Musculoskeletal: No acute osseous pathology. IMPRESSION: No acute cardiopulmonary disease/process. [facility], , 10/11/2024 3:25 PM
[2024-10-11 16:10] VITALS: TEMP 97.4
[2024-10-11] MEDS: LORazepam 2 MG/ML INJ IV STA (16:12)
[2024-10-11] MEDS: SODIUM CHLORIDE 0.9% 1,000 ML IV ONE ×2 (16:12→16:21)
[2024-10-11] MEDS: MAGNESIUM OXIDE 400 MG TAB PO STA ×2 (16:15→16:40)
[2024-10-11] MEDS: DEXAMETHASONE SOD PHOSPHATE 10 MG/ML 1 ML VIAL IVP STA (16:40)
[2024-10-11] MEDS: IPRATROPIUM-ALBUTEROL 3 ML NEB INHALATION STA (17:30)
[2024-10-11 17:49] VITALS: BP 146/67; PULSE 75; RESP 20
== END 2024-10-11 17:50 | disposition home or self-care (01) ==
LOC: EC 13:25
DX: E86.0 Dehydration (principal); R06.00 Dyspnea, unspecified; J45.901 Unspecified asthma with (acute) exacerbation; Z88.0 Allergy status to penicillin; Z88.1 Allergy status to other antibiotic agents; Z91.040 Latex allergy status
CPT/HCPCS: 36415; 94640; 93005; 80053; 83735; 84100; 84484; 85025; 81003; 71045; 99284; 96374; 96375; 96361; J2060; J1100

== ENCOUNTER → 2024-12-07 | Outpatient (CLI) | payer MEDICARE ==
--- NOTE | 2024-12-07 15:16 | MM ---
Reason for Exam: Screening (asymptomatic). Last screening mammogram was performed 12 month(s) ago. Patient History: Menarche at age 14. First Full-Term at age 21. Hysterectomy at age 52. Postmenopausal. Other cancer. Estrogen, starting at age 56 for 4 years, 6 months. 06/20/2006, Core Biopsy on the Right side. 05/29/2007, Benign Cyst Aspiration on the left side. 05/29/2007, Benign Core Biopsy on the right side. Risk Values: Maria Esther 5 year model risk: 2.3%. NCI Lifetime model risk: 4.5%. Prior Study Comparison: 10/20/2021 Bilateral Screening Mammogram, [facility]. 10/21/2022 Bilateral MG 3D screening mammo w/cad, [facility]. 11/29/2023 Bilateral MG 3D screening mammo w/cad, [facility]. Tissue Density: The breasts are heterogeneously dense, which may obscure small masses. Findings: Analyzed By CAD. There are benign-appearing round calcifications redemonstrated scattered throughout the bilateral breasts. Biopsy clip in the right breast is redemonstrated. There is no suspicious group of microcalcifications or new suspicious mass in either breast. Overall Assessment: Benign, BI-RAD 2 Management: Screening Mammogram of both breasts in 1 year. . Patient should continue monthly self-breast exams. A clinical breast exam by your physician is recommended on an annual basis. This exam should not preclude additional follow-up of suspicious palpable abnormalities. Note on Maria Esther scores and lifetime risk: 1. A Maria Esther score greater than 3% is considered moderate risk. If this is the case, consider specialist referral to assess eligibility for a risk reducing agent. 2. If overall lifetime risk for the development of breast cancer is 20% or higher, the patient may qualify for future screening with alternating mammogram and breast MRI. [facility], , 12/07/2024 3:13 PM. Electronically signed and approved by: Ashkan Horton M.D.
== END | disposition home or self-care (01) ==
LOC: RADMAMWWP 14:47
PROVIDERS: ATTEND Internal Medicine Geriatric Medicine
DX: Z12.31 Encounter for screening mammogram for malignant neoplasm of breast (principal); R92.333 Mammographic heterogeneous density, bilateral breasts; R92.1 Mammographic calcification found on diagnostic imaging of breast; Z78.0 Asymptomatic menopausal state
CPT/HCPCS: 77063; 77067